=== PATIENT | female | born 1945 | race Two or more races ===

== ENCOUNTER 2017-06-19 14:05 | Emergency (ER) | payer MEDICARE ==
[~2017-06-19] VITALS: Ht 162.6 cm; Wt 81.2 kg
[2017-06-19] MEDS ORDERED: DULO60CA45 PO (14:40)
[2017-06-19] MEDS ORDERED: CARB-92 PO (14:40)
[2017-06-19] MEDS ORDERED: METO100T7 PO (14:40)
[2017-06-19] MEDS ORDERED: LACT1TAB12 PO (14:40)
[2017-06-19] MEDS ORDERED: LEVE500T9 PO (14:40)
[2017-06-19] MEDS ORDERED: ATOR10TA PO (14:40)
[2017-06-19] MEDS ORDERED: TRAZ-144 PO (14:40)
[2017-06-19] MEDS ORDERED: LISI10TA5 PO (14:40)
[2017-06-19] MEDS ORDERED: PRAM0.122 PO (14:40)
[2017-06-19 14:59] LABS: BASOPHILS # (AUTO) 0.1 K/uL (0.0-8.0); BASOPHILS % (AUTO) 0.8 % (0.0-2.0); EOSINOPHILS # (AUTO) 0.2 K/uL (0.0-0.7); EOSINOPHILS % (AUTO) 2.2 % (0.0-7.0); HEMATOCRIT 40.6 % (31.2-41.9); HEMOGLOBIN 13.7 g/dL (10.9-14.3); LYMPHOCYTES # (AUTO) 1.6 K/uL (20.0-40.0); LYMPHOCYTES % (AUTO) 16.9 % (20.5-51.5); MEAN CORPUSCULAR HGB CONC 34 g/dL (32.3-35.6); MEAN CORPUSCULAR VOLUME 88.7 fL (75.5-95.3); MONOCYTES # (AUTO) 0.7 K/uL (2.0-10.0); MONOCYTES % (AUTO) 7.2 % (0.0-11.0); NEUTROPHILS # (AUTO) 7.1 K/uL (1.8-8.9); NEUTROPHILS % (AUTO) 72.9 % (38.5-71.5); PLATELET COUNT (AUTO) 282 K/uL (179-408); RED BLOOD CELL COUNT(AUTO) 4.58 MIL/uL (3.63-4.92); WHITE BLOOD COUNT (AUTO) 9.8 K/uL (3.8-11.8)
--- NOTE | 2017-06-19 15:00 | NUR ---
PATIENT WAS SEEN BY MD FOR MULTIPLE COMPLAINTS. LABS DRAWN, URINE SENT TO LAB.
[2017-06-19 15:06] LABS: CARBON DIOXIDE 29 mmol/L (21-32); CHLORIDE 104 mmol/L (98-107); CREATININE 0.7 mg/dL (0.6-1.3); GLUCOSE 126 mg/dL (74-106); POTASSIUM 3.2 mmol/L (3.5-5.1); UREA NITROGEN, BLOOD 11 mg/dL (7-18)
[2017-06-19 15:08] LABS: *BILIRUBIN,URIN NEGATIVE (NEGATIVE); *BLOOD, URINE NEGATIVE (NEGATIVE); *COLOR,URINE YELLOW (YELLOW); *KETONES,URINE 1+ (NEGATIVE); *PROTEIN,URINE 1+ (NEGATIVE); *UROBILINOGEN,URINE 0.2 E.U./dl (NORMAL); LEUKOCYTE ESTERASE ,URINE TRACE (NEGATIVE); NITRITE, URINE NEGATIVE (NEGATIVE); UGLUCOSE NEGATIVE (NEGATIVE)
[2017-06-19 15:12] LABS: ALANINE AMINOTRANSFERASE 8 U/L (14-59); ALKALINE PHOSPHATASE 66 U/L (50-136); ASPARTATE AMINOTRANSFERASE 7 U/L (15-37); BILIRUBIN,DIRECT 0.1 mg/dL (0.0-0.2); BILIRUBIN,TOTAL 0.6 mg/dL (0.2-1.0); LIPASE 121 U/L (73-393); TOTAL PROTEIN, SERUM 7.1 g/dL (6.4-8.2)
[2017-06-19 15:20] LABS: *CLARITY,URINE HAZY (CLEAR)
[2017-06-19 15:21] LABS: BACTERIA,URINE FEW /HPF (NONE SEEN); MUCUS,URINE MODERATE /LPF (0-FEW); SQUAMOUS EPITHELIAL CELL,UR MANY /HPF (NONE SEEN)
--- NOTE | 2017-06-19 17:01 | NUR ---
AWAITING FOR CT RESULTS. PT IS AWAKE AND ALERT WITH NO NEW COMPLAINTS. FAMILY AT BEDSIDE.
[2017-06-19] MEDS ORDERED: MAGNESIUM CITRATE 296 ML BOTTLE ONE (17:14)
[2017-06-19] MEDS ORDERED: MAGNESIUM HYDROXIDE 30 ML LIQUID UDC ONE ×2 (17:14→17:15)
[2017-06-19] MEDS ORDERED: MAGNESIUM CITRATE 296 ML BOTTLE PO ONE (17:15)
[2017-06-19] MEDS ORDERED: MAGNESIUM HYDROXIDE 30 ML LIQUID UDC PO ONE (17:15)
--- NOTE | 2017-06-19 17:25 | NUR ---
ALL TEST RESULTS PRINTED AND GIVEN TO PATIENT. DC AND FOLLOW UP INSTRUCTIONS GIVEN AND EXPLAINED TO PATIENT WHO STATES SHE UNDERSTANDS ALL INSTRUCTIONS.
[2017-06-19 17:27] VITALS: BP 133/86
== END 2017-06-19 17:27 | disposition home or self-care (01) ==
LOC: ER 14:06
DX: K57.90 Diverticulosis of intestine, part unspecified, without perforation or abscess without bleeding (principal); I10 Essential (primary) hypertension; Z88.0 Allergy status to penicillin; Z79.891 Long term (current) use of opiate analgesic; Z79.899 Other long term (current) drug therapy; Z88.5 Allergy status to narcotic agent
CPT/HCPCS: 36415; 83690; 85025; 87086; A4663

== ENCOUNTER 2017-06-24 03:33 | Emergency (ER) | payer MEDICARE ==
[~2017-06-24] VITALS: Ht 162.6 cm; Wt 81.6 kg
[~2017-06-24 03:33] MED LIST: ATOR10TA PO; CARB-92 PO; DULO60CA45 PO; LACT1TAB12 PO; LEVE500T9 PO; LISI10TA5 PO; METO100T7 PO; PRAM0.122 PO; TRAZ-144 PO
[2017-06-24] MEDS ORDERED: LORAZEPAM 0.5 MG TABLET PO ONE (04:08)
[2017-06-24] MEDS ORDERED: LORAZEPAM 1 MG TABLET ONE (04:31)
[2017-06-24 04:36] LABS: BASOPHILS # (AUTO) 0.1 K/uL (0.0-8.0); BASOPHILS % (AUTO) 0.5 % (0.0-2.0); EOSINOPHILS # (AUTO) 0.4 K/uL (0.0-0.7); EOSINOPHILS % (AUTO) 3.1 % (0.0-7.0); HEMATOCRIT 38.7 % (31.2-41.9); HEMOGLOBIN 13.4 g/dL (10.9-14.3); LYMPHOCYTES # (AUTO) 2.2 K/uL (20.0-40.0); LYMPHOCYTES % (AUTO) 19.2 % (20.5-51.5); MEAN CORPUSCULAR HEMOGLOBIN 30.1 uug (24.7-32.8); MEAN CORPUSCULAR HGB CONC 35 g/dL (32.3-35.6); MEAN CORPUSCULAR VOLUME 86.7 fL (75.5-95.3); MONOCYTES # (AUTO) 0.7 K/uL (2.0-10.0); MONOCYTES % (AUTO) 6.3 % (0.0-11.0); NEUTROPHILS % (AUTO) 70.9 % (38.5-71.5); PLATELET COUNT (AUTO) 273 K/uL (179-408); RED BLOOD CELL COUNT(AUTO) 4.46 MIL/uL (3.63-4.92); WHITE BLOOD COUNT (AUTO) 11.3 K/uL (3.8-11.8)
[2017-06-24 04:50] LABS: CARBON DIOXIDE 25 mmol/L (21-32); CHLORIDE 102 mmol/L (98-107); CREATININE 0.8 mg/dL (0.6-1.3); GLUCOSE 115 mg/dL (74-106); POTASSIUM 3.5 mmol/L (3.5-5.1); UREA NITROGEN, BLOOD 16 mg/dL (7-18)
[2017-06-24 05:01] LABS: ALANINE AMINOTRANSFERASE 9 U/L (14-59); ALKALINE PHOSPHATASE 65 U/L (50-136); ASPARTATE AMINOTRANSFERASE 10 U/L (15-37); BILIRUBIN,TOTAL 0.7 mg/dL (0.2-1.0); CREATINE KINASE, TOTAL 62 U/L (26-192); TOTAL PROTEIN, SERUM 6.9 g/dL (6.4-8.2)
[2017-06-24 05:25] LABS: *BILIRUBIN,URIN NEGATIVE (NEGATIVE); *BLOOD, URINE NEGATIVE (NEGATIVE); *CLARITY,URINE CLEAR (CLEAR); *COLOR,URINE YELLOW (YELLOW); *KETONES,URINE 1+ (NEGATIVE); *PROTEIN,URINE 1+ (NEGATIVE); *UROBILINOGEN,URINE 0.2 E.U./dl (NORMAL); LEUKOCYTE ESTERASE ,URINE NEGATIVE (NEGATIVE); NITRITE, URINE NEGATIVE (NEGATIVE); PH,URINE 7.5 (5.0-8.0); UGLUCOSE NEGATIVE (NEGATIVE)
[2017-06-24 05:31] LABS: BACTERIA,URINE NONE SEEN /HPF (NONE SEEN); RBC,URINE 0-3 /HPF (0-3); WBC,URINE 0-3 /HPF (0-3)
[2017-06-24 05:32] LABS: SQUAMOUS EPITHELIAL CELL,UR FEW /HPF (NONE SEEN)
--- NOTE | 2017-06-24 06:07 | NUR ---
Patient discharged to home in stable conditon. Written and verbal after care instructions given. Patient verbalizes understanding of instructions.
== END 2017-06-24 06:15 | disposition home or self-care (01) ==
LOC: ER 03:38
DX: R53.83 Other fatigue (principal); I10 Essential (primary) hypertension; Z88.0 Allergy status to penicillin; Z88.5 Allergy status to narcotic agent; Z79.899 Other long term (current) drug therapy
CPT/HCPCS: 36415; 71045; 80053; 81001; 82550; 84484; 85025; 85610; 93005; 99285; A4663; 70030-TC

== ENCOUNTER 2017-07-13 19:16 | Inpatient (IN) | payer MEDICARE ==
[~2017-07-13] VITALS: Ht 172.7 cm; Wt 74.8 kg
--- NOTE | 2017-07-13 19:16 | NUR ---
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 PT AAOX3. PT STATES SHE HAD A SEIZURE WHILE TRYING TO GET INSIDE HER DAUGHTER'S CAR. PER PT, SHE FELL AND HIT HER HEAD. BRUISE TOWARDS RIGHT EYE/NOSE BRIDGE NOTED. BRUISE ON LEFT FOOT NOTED. PT BECAME INCONTINENT OF STOOL AND URINE. RESPIRATIONS EVEN + UNLABORED. SAO2 97% ON 2L O2 VIA NC. PT ON MONITOR. NSR. SEIZURE PRECAUTIONS IMPLEMENTED. VSS.
--- NOTE | 2017-07-13 19:30 | NUR ---
AAOX3. PT ABLE TO SPEAK IN COMPLETE SENTENCES. RESPONSIVE TO VERBAL + TACTILE STIMULI. PT ABLE TO MAKE NEEDS KNOWN. PERSONAL HYGIENE PROVIDED. SEIZURE PRECAUTIONS IMPLEMENTED.
[2017-07-13 19:43] LABS: BASOPHILS # (AUTO) 0.1 K/uL (0.0-8.0); BASOPHILS % (AUTO) 0.6 % (0.0-2.0); EOSINOPHILS # (AUTO) 0.3 K/uL (0.0-0.7); EOSINOPHILS % (AUTO) 2.3 % (0.0-7.0); HEMATOCRIT 37.5 % (31.2-41.9); HEMOGLOBIN 12.9 g/dL (10.9-14.3); LYMPHOCYTES % (AUTO) 16.1 % (20.5-51.5); MEAN CORPUSCULAR HEMOGLOBIN 30.3 uug (24.7-32.8); MEAN CORPUSCULAR HGB CONC 34 g/dL (32.3-35.6); MEAN CORPUSCULAR VOLUME 88.5 fL (75.5-95.3); MONOCYTES # (AUTO) 0.7 K/uL (2.0-10.0); MONOCYTES % (AUTO) 5.5 % (0.0-11.0); NEUTROPHILS # (AUTO) 9.6 K/uL (1.8-8.9); NEUTROPHILS % (AUTO) 75.5 % (38.5-71.5); PLATELET COUNT (AUTO) 362 K/uL (179-408); RED BLOOD CELL COUNT(AUTO) 4.24 MIL/uL (3.63-4.92); WHITE BLOOD COUNT (AUTO) 12.7 K/uL (3.8-11.8)
--- NOTE | 2017-07-13 19:55 | NUR ---
PT EN ROUTE TO CT SCAN ACCOMPANIED BY TRANSPORTER. NO DISTRESS NOTED. VSS.
[2017-07-13 19:58] LABS: CARBON DIOXIDE 24 mmol/L (21-32); CHLORIDE 98 mmol/L (98-107); CREATININE 0.8 mg/dL (0.6-1.3); GLUCOSE 145 mg/dL (74-106); POTASSIUM 2.9 mmol/L (3.5-5.1); UREA NITROGEN, BLOOD 11 mg/dL (7-18)
[2017-07-13 20:12] LABS: ALANINE AMINOTRANSFERASE 6 U/L (14-59); ALKALINE PHOSPHATASE 89 U/L (50-136); ASPARTATE AMINOTRANSFERASE 9 U/L (15-37); BILIRUBIN,DIRECT 0.1 mg/dL (0.0-0.2); BILIRUBIN,TOTAL 0.6 mg/dL (0.2-1.0); TOTAL PROTEIN, SERUM 6.9 g/dL (6.4-8.2)
--- NOTE | 2017-07-13 20:15 | NUR ---
PT BACK FROM CT SCAN. NO DISTRESS NOTED.
[2017-07-13] MEDS ORDERED: LORAZEPAM 2 MG/1 ML VIAL IV ONE ×2 (20:45→21:30)
[2017-07-13] MEDS ORDERED: POTASSIUM CHLORIDE 50 ML ONE (20:55)
[2017-07-13] MEDS ORDERED: CARB-93 PO ×2 (20:56)
[2017-07-13] MEDS ORDERED: LORAZEPAM 2 MG/1 ML VIAL ONE ×2 (20:57→21:40)
[2017-07-13] MEDS ORDERED: POTASSIUM CHLORIDE 50 ML IV SCH (21:00)
[2017-07-13] MEDS ORDERED: LABETALOL HCL 100 MG/20 ML VIAL ONE (21:10)
[2017-07-13] MEDS ORDERED: LABETALOL HCL 100 MG/20 ML VIAL IV ONE (21:15)
--- NOTE | 2017-07-13 21:30 | NUR ---
PT SHOWS SINUS TACHY ON MONITOR. HR 120. PT AAOX3. RESPIRATIONS EVEN + UNLABORED. SAO2 96% ON 2L O2 VIA NC. ATIVAN GIVEN.
--- NOTE | 2017-07-13 21:43 | NUR ---
DR ROSA SPOKE WITH DR KIKA MAX WHO IS ACCEPTING MD AT [facility]. CALLED [facility] AND SPOKE WITH JADE. SHE WILL CALL BACK WITH TRANSFER INFO WHEN INFO IS AVAILABLE
--- NOTE | 2017-07-13 22:08 | NUR ---
RECEIVED CALL FROM [facility] INFORMING US THERE ARE NO BEDS AVAILABLE.
--- NOTE | 2017-07-13 22:30 | NUR ---
Paged [facility] panel as ordered by Dr Cline for admission of patient. Waiting for Dr Schmitt to call back
--- NOTE | 2017-07-13 23:00 | NUR ---
Dr York has not return call. Repaged Dr Schmitt
--- NOTE | 2017-07-13 23:24 | NUR ---
WHITNEY (PT'S DAUGHTER) PHONE# [phone]
--- NOTE | 2017-07-13 23:30 | NUR ---
Dr Schmitt has nt return phone call. Repaged Dr Schmitt
--- NOTE | 2017-07-13 23:50 | NUR ---
PT RESTING IN BED COMFORTABLY WITH EYES CLOSED. VSS. NO DISTRESS NOTED.
--- NOTE | 2017-07-13 23:55 | NUR ---
PAGED [facility] FOR PANEL CALL. WAITING FOR CALL BACK.
[2017-07-14] VITALS (8 sets, daily range): BP systolic 128–184; BP diastolic 56–108
--- NOTE | 2017-07-14 00:09 | NUR ---
DR. ROSA TALKING TO VIKI LLANES NP.
--- NOTE | 2017-07-14 00:45 | NUR ---
NEW ADMIT FROM ER ADMITTED FOR SEIZURE OBSERVATION. PATIENT IS AAXO3 DENIES PAIN OR ANY DISTRESS ON ASSESSMENT. BP ELEVATED, AWAITING FOR ADMIT ORDERS. WILL CONTINUE TO MONITOR PATIENT
--- NOTE | 2017-07-14 00:56 | NUR ---
Pt. admitted to Tele , under care of Jodie Cedillo NP. Belongs List completed. VSS.
[2017-07-14] MEDS ORDERED: ACETAMINOPHEN 325 MG TABLET PO PRN (02:00)
[2017-07-14] MEDS ORDERED: ZOLPIDEM 5 MG TABLET PO PRN (02:00)
[2017-07-14] MEDS ORDERED: HYDROCODONE/APAP 5-325MG TABLET PO PRN (02:00)
[2017-07-14] MEDS ORDERED: MAGNESIUM HYDROXIDE 30 ML LIQUID UDC PO PRN (02:00)
[2017-07-14] MEDS ORDERED: LORAZEPAM 2 MG/1 ML VIAL IV PRN (02:00)
[2017-07-14] MEDS ORDERED: ONDANSETRON 4 MG/2 ML VIAL IV PRN (02:00)
[2017-07-14] MEDS ORDERED: hydrALAZINE HCL 20 MG/1 ML VIAL IV PRN (03:00)
--- NOTE | 2017-07-14 06:51 | NUR ---
PATIENT IS ASLEEP, NO SZ ACTIVITY ON THIS SHIFT. NO C/O PAIN OR ACUTE DISTRESS REPORTED ON THIS SHIFT. SZ AND SAFETY PRECAUTION MAINTAINED AT ALL TIMES
[2017-07-14 07:00] LABS: CARBON DIOXIDE 29 mmol/L (21-32); CHLORIDE 101 mmol/L (98-107); CREATININE 0.6 mg/dL (0.6-1.3); GLUCOSE 101 mg/dL (74-106); UREA NITROGEN, BLOOD 8 mg/dL (7-18)
[2017-07-14 07:19] LABS: BASOPHILS # (AUTO) 0.1 K/uL (0.0-8.0); BASOPHILS % (AUTO) 0.5 % (0.0-2.0); EOSINOPHILS # (AUTO) 0.2 K/uL (0.0-0.7); EOSINOPHILS % (AUTO) 1.5 % (0.0-7.0); HEMOGLOBIN 12.5 g/dL (10.9-14.3); LYMPHOCYTES # (AUTO) 1.7 K/uL (20.0-40.0); LYMPHOCYTES % (AUTO) 14.4 % (20.5-51.5); MEAN CORPUSCULAR HEMOGLOBIN 30.4 uug (24.7-32.8); MEAN CORPUSCULAR HGB CONC 35 g/dL (32.3-35.6); MEAN CORPUSCULAR VOLUME 87.5 fL (75.5-95.3); MONOCYTES # (AUTO) 0.8 K/uL (2.0-10.0); MONOCYTES % (AUTO) 6.6 % (0.0-11.0); NEUTROPHILS # (AUTO) 9.2 K/uL (1.8-8.9); PLATELET COUNT (AUTO) 339 K/uL (179-408); RED BLOOD CELL COUNT(AUTO) 4.12 MIL/uL (3.63-4.92)
--- NOTE | 2017-07-14 08:00 | NUR ---
VERY CONFUSED AND AGITATED, GOES ROOM BY ROOM. BP 220/120, HR 170 ON MONITOR. ATIVAN IV GIVEN AND CLOSLY MONITORED
[2017-07-14] MEDS: CARBIDOPA/LEVODOPA 25-100MG TABLET PO SCH ×3 (08:44→16:17)
[2017-07-14] MEDS: PRAMIPEXOLE 0.25 MG TABLET PO SCH ×3 (08:44→16:18)
[2017-07-14] MEDS: POTASSIUM CHLORIDE 50 ML IV SCH ×4 (08:45→13:32)
[2017-07-14] MEDS ORDERED: DULOXETINE 60 MG CAPSULE.DR PO SCH (09:00)
[2017-07-14] MEDS ORDERED: LISINOPRIL 10 MG TABLET PO SCH (09:00)
[2017-07-14] MEDS ORDERED: LEVETIRACETAM 500 MG TABLET PO SCH ×2 (09:00→21:00)
[2017-07-14] MEDS ORDERED: ENOXAPARIN SODIUM 40 MG/0.4 ML DISP.SYRIN SQ SCH (09:00)
[2017-07-14] MEDS ORDERED: METOPROLOL SUCCINATE XL 100 MG TAB.SR.24H PO SCH (09:00)
--- NOTE | 2017-07-14 10:00 | NUR ---
PATIENT REFUSED SECOND DOSE OF IV ATIVAN AFTER BEING WASTED
--- NOTE | 2017-07-14 10:55 | NUR ---
PATIENT STILL SHAKING AND YELLING CONSTANTLY FOR HELP CONFUSED AND DISORIENTED, SEEN BY DR DOWNEY SEE NOTES
--- NOTE | 2017-07-14 14:54 | NUR ---
RESTING COMFORTABLY NO SS OF PAIN OR DISTRESS. BLOOD PRESSURE UNDER CONTROL. SEE INTERVENTION RECORDS
--- NOTE | 2017-07-14 17:33 | NUR ---
NO ACTIVE SEIZURE OBSERVE, CLOSELY MONITORED. FOR TRANSFER TO [facility] WHEN BED IS AVAILABLE
[2017-07-14 17:46] LABS: *BILIRUBIN,URIN NEGATIVE (NEGATIVE); *BLOOD, URINE 1+ (NEGATIVE); *CLARITY,URINE CLOUDY (CLEAR); *KETONES,URINE 2+ (NEGATIVE); *PROTEIN,URINE 2+ (NEGATIVE); *UROBILINOGEN,URINE 0.2 E.U./dl (NORMAL); LEUKOCYTE ESTERASE ,URINE 3+ (NEGATIVE); NITRITE, URINE NEGATIVE (NEGATIVE); UGLUCOSE NEGATIVE (NEGATIVE)
[2017-07-14 18:06] LABS: *COLOR,URINE YELLOW (YELLOW)
[2017-07-14 18:08] LABS: BACTERIA,URINE MANY /HPF (NONE SEEN); MUCUS,URINE MODERATE /LPF (0-FEW); SQUAMOUS EPITHELIAL CELL,UR FEW /HPF (NONE SEEN); WBC,URINE TNTC /HPF (0-3)
--- NOTE | 2017-07-14 19:10 | NUR ---
Received patient sleeping during initial rounds. Right side of nose bridge with visible bruise due to fall. Seizure precaution maintained.
[2017-07-14] MEDS ORDERED: LEVOFLOXACIN 500 MG/D5W 500 MG in PREMIXED 1 EACH IV SCH (20:00)
--- NOTE | 2017-07-14 20:05 | NUR ---
Informed daughter Delilah that [facility] called for available bed, that we are transferring her mom within 30 - 1 hour after all the necessary paper works done via Ambulance.
[2017-07-14] MEDS ORDERED: ATORVASTATIN 10 MG TABLET PO SCH (21:00)
--- NOTE | 2017-07-14 22:16 | NUR ---
Ambulance here to moss picker patient to [facility]. Report given to
== END 2017-07-14 22:29 | disposition short-term general hospital (02) | DRG 100 ==
LOC: ER 19:18 → TELE 07-14 00:19
PROVIDERS: ADMIT Internal Medicine; ATTEND Internal Medicine
DX: G40.909 Epilepsy, unspecified, not intractable, without status epilepticus (principal); G92 Toxic encephalopathy; G20 Parkinson's disease; N39.0 Urinary tract infection, site not specified; E87.6 Hypokalemia; E78.5 Hyperlipidemia, unspecified; F32.9 Major depressive disorder, single episode, unspecified; F41.9 Anxiety disorder, unspecified; I10 Essential (primary) hypertension; S00.83XA Contusion of other part of head, initial encounter; X58.XXXA Exposure to other specified factors, initial encounter; Y93.9 Activity, unspecified; Y92.009 Unspecified place in unspecified non-institutional (private) residence as the place of occurrence of the external cause; R32 Unspecified urinary incontinence
CPT/HCPCS: 36415; 70450; 71045; 72125; 85025; 87077; 87086; 93005; A4663; C1758; J0360; J1650; J1956; J2060; J3480; J3490; J7050

== ENCOUNTER 2020-12-07 20:25 | Inpatient (IN) | payer MEDICARE, OTHER ==
[~2020-12-07] VITALS: Ht 165.1 cm; Wt 60.8 kg
[~2020-12-07 20:25] MED LIST changes: -CARB-92 PO; +CARB-93 PO; +LEVE500T9 GT; -LEVE500T9 PO; +LISI10TA29 PO; -LISI10TA5 PO; -TRAZ-144 PO
--- NOTE | 2020-12-07 20:30 | NUR ---
PATIENT BIB PRIVATE AMBULANCE FROM [facility] FOR EVAL FOR FEVER EARLIER TODAY. PATIENT UPON ARRIVAL A/OX2, O2 SAT AT 97% ON 2LITERS OF N/C. INDWELLING HERNANDEZ CATHETER DRAINING CLEAR YELLOW URINE. G TUBE INTACT WITH DRESSING CLEAN AND DRY. PATIENT DENIES ANY DISTRESS AT THIS TIME.
[2020-12-07] MEDS ORDERED: IV NORMAL SALINE 1000 ML BAG IV ONE (21:00)
[2020-12-07] MEDS ORDERED: BISA10SU11 RC (21:10)
[2020-12-07] MEDS ORDERED: MEMA10TA GT (21:10)
[2020-12-07] MEDS ORDERED: ACET-2154 GT (21:10)
[2020-12-07] MEDS ORDERED: CLON0.1T GT (21:10)
[2020-12-07] MEDS ORDERED: acetylcysteine INH (21:10)
[2020-12-07] MEDS ORDERED: BIMA2.5D5 EACHEYE (21:10)
[2020-12-07] MEDS ORDERED: PANT40TA2 GT (21:10)
[2020-12-07] MEDS ORDERED: APIX5TAB GT (21:10)
[2020-12-07] MEDS ORDERED: ASCO500T10 GT (21:10)
[2020-12-07] MEDS ORDERED: PRAV20TA4 GT (21:10)
[2020-12-07] MEDS ORDERED: ESCI-9 GT ×2 (21:10)
[2020-12-07] MEDS ORDERED: METO100T14 GT (21:10)
[2020-12-07] MEDS ORDERED: DORZ10DR11 EACHEYE (21:10)
[2020-12-07] MEDS ORDERED: ONDA-104 GT (21:10)
[2020-12-07] MEDS ORDERED: BRIM5DRO EACHEYE (21:10)
[2020-12-07] MEDS ORDERED: AMLO-212 GT (21:10)
[2020-12-07 21:11] LABS: *BILIRUBIN,URIN NEGATIVE (NEGATIVE); *BLOOD, URINE 1+ (NEGATIVE); *CLARITY,URINE CLEAR (CLEAR); *COLOR,URINE YELLOW (YELLOW); *KETONES,URINE NEGATIVE (NEGATIVE); LEUKOCYTE ESTERASE ,URINE 1+ (NEGATIVE); NITRITE, URINE NEGATIVE (NEGATIVE); UGLUCOSE NEGATIVE (NEGATIVE)
[2020-12-07 21:12] LABS: CARBON DIOXIDE 27 mmol/L (21-32); CHLORIDE 100 mmol/L (98-107); CREATININE 0.5 mg/dL (0.6-1.3); GLUCOSE 99 mg/dL (74-106); POTASSIUM 4.6 mmol/L (3.5-5.1); UREA NITROGEN, BLOOD 20 mg/dL (7-18)
[2020-12-07 21:17] LABS: ALANINE AMINOTRANSFERASE 8 U/L (14-59); ALKALINE PHOSPHATASE 57 U/L (50-136); ASPARTATE AMINOTRANSFERASE 17 U/L (15-37); BILIRUBIN,DIRECT < 0.1 mg/dL (0.0-0.2); BILIRUBIN,TOTAL 0.4 mg/dL (0.2-1.0); TOTAL PROTEIN, SERUM 7.5 g/dL (6.4-8.2)
[2020-12-07 21:19] LABS: HEMATOCRIT 33.5 % (31.2-41.9); MEAN CORPUSCULAR HEMOGLOBIN 31.5 uug (24.7-32.8); MEAN CORPUSCULAR VOLUME 93.1 fL (75.5-95.3)
[2020-12-07 21:22] LABS: PLATELET COUNT (AUTO) 1034 K/uL (179-408)
[2020-12-07] MEDS ORDERED: ONDANSETRON 4 MG/2 ML VIAL IV PRN (22:15)
[2020-12-07] MEDS ORDERED: CEFTRIAXONE 1 G in IV DEXTROSE 5% 50 ML IV ONE (22:15)
[2020-12-07] MEDS ORDERED: IV D5/ 0.9% NACL 1,000 ML IV PRN (22:15)
[2020-12-07] MEDS ORDERED: VANCOMYCIN IV 1,000 MG in IV DEXTROSE 5% 250 ML IV ONE (22:15)
--- NOTE | 2020-12-07 22:15 | NUR ---
HOSPITAL'S CT SCAN DOWN. WILL SEND PATIENT TO [facility]. ETA OF PLATE GRAINER IS 45MINS.
[2020-12-07] MEDS ORDERED: CEFTRIAXONE /D5W 50ML IVPB **ER PYXIS IV ONE (22:25)
[2020-12-07] MEDS ORDERED: VANCOMYCIN IV 200 ML ONE (22:53)
--- NOTE | 2020-12-07 23:50 | NUR ---
CT scan up and functioning. Patient sent down for ct scan via gurny.
--- NOTE | 2020-12-08 00:01 | NUR ---
Patient back from ct scan with no distress noted.
[2020-12-08] MEDS ORDERED: MEROPENEM 0.5 G in IV NORMAL SALINE 50 ML IV ONE (02:45)
--- NOTE | 2020-12-08 02:45 | NUR ---
Drained 900ml of clear yellow urine from longo catheter.
--- NOTE | 2020-12-08 02:48 | NUR ---
Tarnsfered patient to 3rd floor Tele room 325.
--- NOTE | 2020-12-08 03:00 | NUR ---
RECEIVED PATIENT VIA GURNEY FROM ER. A/O X 2-3. VERBALIZES UNDERSTANDING. DENIES PAIN. NO FACIAL GRIMACE NOTED. AFEBRILE. VS WNL. ON 02 2L NC. F/C INTACT, DRAINING WELL TO GRAVITY. ON TELE SR. CALL LIGHT IN REACH. ALL NEEDS ATTENDED. WILL CONTINUE TO MONITOR AND ASSESS.
[2020-12-08 03:37] VITALS: BP 122/42
--- NOTE | 2020-12-08 04:42 | NUR ---
CASING CREW REPORTED THAT PATIENT HAD A RUN OF 7 BEATS V-TACH AND THEN BACK TO SR. WILL CONTINUE TO MONITOR AND ASSESS.
[2020-12-08] MEDS ORDERED: MEROPENEM 500MG/NS 50ML PB ***ER PYXIS ONLY IV ONE (04:56)
[2020-12-08] MEDS ORDERED: Z GUARD REMEDY PASTE 57 GM TUBE TOP PRN (05:30)
[2020-12-08 06:53] LABS: BAND % (MANUAL) 1 % (0-10); EOSINOPHILS % (MANUAL) 7 % (0-8); LYMPHOCYTES % (MANUAL) 27 % (20-40); MONOCYTES % (MANUAL) 3 % (2-10); NEUTROPHILS % (MANUAL) 62 % (42-75)
[2020-12-08 07:54] LABS: HEMATOCRIT 28.1 % (31.2-41.9); MEAN CORPUSCULAR HEMOGLOBIN 32.5 uug (24.7-32.8); PLATELET COUNT (AUTO) 840 K/uL (179-408)
[2020-12-08 07:55] LABS: IRON, SERUM 15 ug/dL (50-175)
--- NOTE | 2020-12-08 08:00 | NUR ---
RECEIVED REPORT FROM TRIAGE NURSE. PATIENT RESTING IN BED. PENDING WOUND AND DEICER KIT ASSEMBLER CONSULT. IS NPO NOW. ON D5 NS AT 70CC/ HR TO RIGHT AC PERIPHERAL IV. DX. UTI, ON ABX IV.ON 2L/MIN 02 VIA NC. AWAKE, ALERT TO PERSON, ANSWERS QUESTIONS APPROPRIATELY.
[2020-12-08 08:01] LABS: ALANINE AMINOTRANSFERASE 8 U/L (14-59); ALKALINE PHOSPHATASE 50 U/L (50-136); ASPARTATE AMINOTRANSFERASE 16 U/L (15-37); BILIRUBIN,TOTAL 0.3 mg/dL (0.2-1.0); CARBON DIOXIDE 26 mmol/L (21-32); CHLORIDE 104 mmol/L (98-107); CHOLESTEROL 125 mg/dL (<200); CREATININE 0.5 mg/dL (0.6-1.3); GLUCOSE 115 mg/dL (74-106); HDL CHOLESTEROL 41 mg/dL (40-60); MAGNESIUM 1.9 mg/dL (1.8-2.4); PHOSPHOROUS 4.1 mg/dL (2.5-4.9); POTASSIUM 3.8 mmol/L (3.5-5.1); TOTAL PROTEIN, SERUM 6.4 g/dL (6.4-8.2); TRIGLYCERIDES 75 MG/DL (30-150); UREA NITROGEN, BLOOD 15 mg/dL (7-18)
[2020-12-08 08:22] LABS: THYROID STIMULATING HORMONE 2.342 mIU/mL (0.358-3.740)
[2020-12-08] MEDS: levETIRAcetam IV 500 MG in IV DEXTROSE 5% 100 ML IV SCH ×2 (09:28→20:12)
[2020-12-08] MEDS: PANTOPRAZOLE SODIUM 40 MG VIAL IV SCH (09:29)
--- NOTE | 2020-12-08 11:26 | NUR ---
SPOKE TO COWLMAN WITH RECOMMENDATION FOR gt FEEDING. START JEVITY 1.2 AT 40ML/HR VIA GT. INCREASE BY 20ML PER 6 HOURS FOR GOAL RATE AT 65ML/HR FOR 22 HOURS. OFF AT 6AM ON AT 8AM. SPOKE TO DR. TUCKER, AGREED WITH ORDERS AND ORDERED TO DC IV FLUIDS AFTER 1 HOUR OF START OF GT FEEDING.
[2020-12-08 11:45] VITALS: BP 96/40
[2020-12-08] MEDS ORDERED: LEVE500S9 GT (12:38)
[2020-12-08] MEDS ORDERED: MEMA5TAB GT (12:40)
[2020-12-08] MEDS: MEROPENEM 1 G in IV NORMAL SALINE 100 ML IV SCH ×2 (13:16→21:36)
[2020-12-08] MEDS ORDERED: IPRA12.9 IH (13:57)
[2020-12-08] MEDS ORDERED: IPRA3AMP23 IH (13:58)
[2020-12-08] MEDS ORDERED: ACET100V5 IH (13:59)
[2020-12-08] MEDS ORDERED: MEROPENEM 0.5 G in IV NORMAL SALINE 50 ML IV SCH (14:00)
[2020-12-08] MEDS: JEVITY 1.2 1000 ML LIQUID GT PRN (14:44)
[2020-12-08 16:31] VITALS: BP 104/61
--- NOTE | 2020-12-08 18:12 | NUR ---
NO CHANGE NOTED FROM MORNING ASSESSMENT/ BASELINE. CONTINUE POC.
[2020-12-08 20:21] VITALS: BP 127/64
[2020-12-09 00:12] VITALS: BP 114/55
[2020-12-09] MEDS: MORPHINE SULFATE 2 MG/1 ML DISP.SYRIN IV PRN ×2 (01:02→22:29)
--- NOTE | 2020-12-09 01:06 | NUR ---
Facial grimacing noted. Pt looks uncomfortable. Moaning and groaning. Morphine given for pain.
--- NOTE | 2020-12-09 03:00 | NUR ---
Notified Dr Aguilar diversional therapist for [place] pt has temp of 101 tylenol given and cooling measures done will monitor patient. No new order received.
[2020-12-09] MEDS: ACETAMINOPHEN 650 MG SUPP.RECT RC PRN ×2 (03:17→13:26)
[2020-12-09 04:18] VITALS: BP 133/45
--- NOTE | 2020-12-09 04:34 | NUR ---
Notified Dr Aguilar of pt having 6 beats of v tach Back to SNR @110 Temp rechecked 98.8. b/p 132/54 o2 sat of 95%on 2 lit. Pt asymptomatic. Pt is in no acute distress. No new order received. Notified no statistician theoretical notes.
[2020-12-09] MEDS: MEROPENEM 1 G in IV NORMAL SALINE 100 ML IV SCH ×3 (06:05→21:35)
[2020-12-09 06:15] LABS: HEMATOCRIT 30.7 % (31.2-41.9); MEAN CORPUSCULAR HEMOGLOBIN 31.8 uug (24.7-32.8); MEAN CORPUSCULAR VOLUME 95.4 fL (75.5-95.3); PLATELET COUNT (AUTO) 985 K/uL (179-408)
[2020-12-09 06:25] LABS: CREATININE 0.6 mg/dL (0.6-1.3); MAGNESIUM 2.1 mg/dL (1.8-2.4); PHOSPHOROUS 3.6 mg/dL (2.5-4.9); POTASSIUM 4.1 mmol/L (3.5-5.1)
--- NOTE | 2020-12-09 06:40 | NUR ---
Pt had loose bm x 2 at hs shift. PT is in no acute distress.
--- NOTE | 2020-12-09 08:00 | NUR ---
RECEIVED REPORT FROM [facility] RADIOLOGY. PATIENT RESTING IN BED IN SEMI FOWLERS POSITION. PATIENT RESPONSIVE TO NAME, STILL NOTED SLURRED SPEECH. CONTINUES ON OXYGEN AT 2L/MIN VIA NC, NO RESPIRATORY DISTRESS NOTED. GT FEELING OFF SINCE 6AM, WAITING FOR JEVITY 1.2 FROM DIETARY DEPARTMENT. NO FEVER AT THIS TIME. NOTED WITH ONE LOOSE STOOL NOW.
[2020-12-09] MEDS: PANTOPRAZOLE SODIUM 40 MG VIAL IV SCH (08:33)
[2020-12-09] MEDS: levETIRAcetam IV 500 MG in IV DEXTROSE 5% 100 ML IV SCH ×2 (08:33→20:46)
[2020-12-09] MEDS: JEVITY 1.2 1000 ML LIQUID GT PRN (08:54)
[2020-12-09 12:00] VITALS: BP 100/51
--- NOTE | 2020-12-09 12:04 | NUR ---
WOUND CARE CONSULT: PT PRESENTS WITH RASH TO GROIN FOLDS AND PERINEUM WELL INCONTINENCE ASSOCIATED SKIN DAMAGE OVER SACRAL SCAR, PRESENT ON ADMISSION. RECOMMENDATIONS MADE FOR WOUND CARE AND SKIN PROTECTION. DISCUSSED WITH NURSING STAFF. PT IS ON FIRST STEP JORGE MELTON MD IN AGREEMENT WITH PLAN OF CARE. Addendum: 12/09/20 at 1205 by TERESITA SELBY RN Amended: Links added.
--- NOTE | 2020-12-09 13:00 | NUR ---
SPOKE TO LIVING COACH, AWARE OF LOOSE STOOL OVER NIGHT AND THIS AM. AWARE PATIENT IS AT GOAL RATE OF JEVITY 1.2 AT 65ML/HR. TOLERATING WELL. AM RESIDUAL IS 15ML. PATIENT IN SEMI FOWLERS POSITION.
[2020-12-09 15:50] VITALS: BP 103/50
[2020-12-09] MEDS: CLOTRIMAZOLE 1% CREAM 30 GM TUBE TOP SCH (17:01)
--- NOTE | 2020-12-09 17:25 | NUR ---
Dr. Soares made aware of patient tachycardia, 110-130. MD with orders to start Lopressor 50mg via GT now.
[2020-12-09] MEDS: METOPROLOL TARTRATE 50 MG TABLET GT SCH ×2 (17:56→21:00)
--- NOTE | 2020-12-09 18:19 | NUR ---
stool collected fro OB. patient had 2 episodes of loose stool. Patient sleeping most of the day and is now awake. Alert to self and place, answers questions appropriately. no fever
[2020-12-09 18:46] LABS: *OCCULT BLOOD STOOL POSITIVE (NEGATIVE)
[2020-12-09 20:00] VITALS: BP 132/64
[2020-12-10] VITALS: BP 122/72
[2020-12-10] MEDS: LORAZEPAM 2 MG/1 ML VIAL IV PRN (01:50)
[2020-12-10] MEDS: JEVITY 1.2 1000 ML LIQUID GT PRN ×2 (01:53→21:29)
[2020-12-10 04:00] VITALS: BP 111/56
[2020-12-10] MEDS: PANTOPRAZOLE ORAL SUSPENSION 40 MG SUSPDR.PKT GT SCH (05:48)
[2020-12-10] MEDS: MEROPENEM 1 G in IV NORMAL SALINE 100 ML IV SCH ×3 (06:06→21:17)
[2020-12-10] MEDS: METOPROLOL TARTRATE 50 MG TABLET GT SCH ×2 (10:11→21:00)
[2020-12-10] MEDS: CLOTRIMAZOLE 1% CREAM 30 GM TUBE TOP SCH ×2 (10:11→16:33)
[2020-12-10] MEDS: levETIRAcetam IV 500 MG in IV DEXTROSE 5% 100 ML IV SCH (10:13)
[2020-12-10 11:04] VITALS: BP 110/52
[2020-12-10] MEDS ORDERED: IPRATROPIUM BROMIDE 12.9 GM INHALER INH PRN (12:30)
[2020-12-10] MEDS ORDERED: ACETAMINOPHEN 650 MG/20.3 ML LIQUID UDC GT PRN (12:30)
[2020-12-10] MEDS ORDERED: BISACODYL 10 MG SUPP.RECT RC PRN (12:30)
[2020-12-10] MEDS ORDERED: ACETAMINOPHEN 325 MG TABLET-SA PATIENTS-PAIN ONLY GT PRN (12:30)
[2020-12-10] MEDS ORDERED: CLONIDINE HCL 0.1 MG TABLET GT PRN (12:30)
[2020-12-10] MEDS ORDERED: ACETAMINOPHEN 650 MG/20.3 ML LIQUID UDC PO PRN (12:30)
[2020-12-10] MEDS: CARBIDOPA/LEVODOPA 25-100MG TABLET GT SCH ×2 (13:00→16:32)
[2020-12-10] MEDS ORDERED: CARBIDOPA/LEVODOPA 25-100MG TABLET PO SCH (13:00)
[2020-12-10 15:06] VITALS: BP 124/53
[2020-12-10] MEDS: ACETYLCYSTEINE 10% 4ML VIAL NEB SCH ×2 (15:30→22:33)
[2020-12-10] MEDS: MEMANTINE HCL 5 MG TABLET GT SCH (16:32)
[2020-12-10] MEDS: APIXABAN 5 MG TABLET GT SCH (16:38)
[2020-12-10] MEDS: DORZOLAMIDE/TIMOLOL OPHT DROP 10 ML BOTTLE EACHEYE SCH (16:41)
[2020-12-10] MEDS ORDERED: Medication Not On Formulary EA (Levetiracetam 250 MG) GT SCH (17:00)
[2020-12-10] MEDS ORDERED: Medication Not On Formulary EA (Metoprolol Tartrate (Lopressor) 100 MG) GT SCH (17:00)
[2020-12-10] MEDS ORDERED: BIMATOPROST 0.01% OPHT DROP 2.5 ML BOTTLE EACHEYE SCH (21:00)
[2020-12-10] MEDS: ESCITALOPRAM OXALATE 10 MG TABLET GT SCH (21:15)
[2020-12-10] MEDS: levETIRAcetam 500 MG/5 ML LIQUID UDC GT SCH (21:15)
[2020-12-10] MEDS: ATORVASTATIN 10 MG TABLET GT SCH (21:15)
[2020-12-10] MEDS: LATANOPROST OPHT DROP 2.5 ML BOTTLE EACHEYE SCH (21:16)
--- NOTE | 2020-12-10 21:30 | NUR ---
Patient awake verbally responsive , no sob no chest pain, tele monitor sinus rhythm at this time. Patient has no complain of pain at this time, report still has diarrhea, rendered good gabriel care, longo cath patent, no residual from gt, cont to monitor.
[2020-12-10] MEDS: IPRATROPIUM BROMIDE 0.5 MG/2.5 ML NEBU NEB PRN (22:33)
[2020-12-11 01:09] VITALS: BP 94/22
[2020-12-11 04:00] VITALS: BP 126/58
[2020-12-11] MEDS: PANTOPRAZOLE ORAL SUSPENSION 40 MG SUSPDR.PKT GT SCH (05:44)
[2020-12-11] MEDS: MEROPENEM 1 G in IV NORMAL SALINE 100 ML IV SCH ×3 (05:44→21:28)
--- NOTE | 2020-12-11 06:21 | NUR ---
Patient awake but forgetful no sob no chest pain, hob elevated, tolerate feeding, no nausea noted, with soft bm x 2, tele monitor sinus rhythm sinus tachy, denies pain at this time, cont to monitor.
[2020-12-11 06:39] LABS: HEMATOCRIT 29.6 % (31.2-41.9); MEAN CORPUSCULAR HEMOGLOBIN 31.5 uug (24.7-32.8); MEAN CORPUSCULAR VOLUME 94.1 fL (75.5-95.3); PLATELET COUNT (AUTO) 931 K/uL (179-408)
[2020-12-11 07:04] LABS: CARBON DIOXIDE 29 mmol/L (21-32); CHLORIDE 108 mmol/L (98-107); CREATININE 0.5 mg/dL (0.6-1.3); GLUCOSE 95 mg/dL (74-106); MAGNESIUM 1.9 mg/dL (1.8-2.4); PHOSPHOROUS 3.2 mg/dL (2.5-4.9); POTASSIUM 4.1 mmol/L (3.5-5.1); UREA NITROGEN, BLOOD 12 mg/dL (7-18)
[2020-12-11 07:50] VITALS: BP 111/59
--- NOTE | 2020-12-11 08:00 | NUR ---
received patient laying in bed in no acute distress. patient is alert and oriented 2-3, currently bed bound and maximum assist. Patient with v/s 11.59, 107, 20, 98.0, spo2 93% on 2L via n/c pain 0/10. patient is currently NPO on jevity 1.2 @ 65cc x 2 hr and tolerating well, 0 residual noted at this time. patient is on telemetry currently showing sinus tach. patient with f/c in place and patent draining yellow urine, 0 sedimentation note at this time. currently with a Right AC 20g in place and patent, dressing clean and dry. reminded patient to use call light for assistance. side rails up x2 will monitor.
[2020-12-11] MEDS: IPRATROPIUM BROMIDE 0.5 MG/2.5 ML NEBU NEB PRN ×3 (08:25→23:42)
[2020-12-11] MEDS: ACETYLCYSTEINE 10% 4ML VIAL NEB SCH ×3 (08:25→23:41)
[2020-12-11] MEDS: levETIRAcetam 500 MG/5 ML LIQUID UDC GT SCH ×2 (08:43→21:26)
[2020-12-11] MEDS: METOPROLOL TARTRATE 50 MG TABLET GT SCH ×2 (08:44→21:00)
[2020-12-11] MEDS: CARBIDOPA/LEVODOPA 25-100MG TABLET GT SCH ×3 (08:44→17:48)
[2020-12-11] MEDS: MEMANTINE HCL 5 MG TABLET GT SCH ×2 (08:44→17:48)
[2020-12-11] MEDS: ASCORBIC ACID 500 MG TABLET GT SCH (08:44)
[2020-12-11] MEDS: APIXABAN 5 MG TABLET GT SCH ×2 (08:44→17:49)
[2020-12-11] MEDS: AMLODIPINE 5 MG TABLET GT SCH (08:44)
[2020-12-11] MEDS: ESCITALOPRAM OXALATE 10 MG TABLET GT SCH ×2 (08:45→21:25)
[2020-12-11] MEDS: DORZOLAMIDE/TIMOLOL OPHT DROP 10 ML BOTTLE EACHEYE SCH ×2 (08:45→17:49)
[2020-12-11] MEDS: CLOTRIMAZOLE 1% CREAM 30 GM TUBE TOP SCH ×2 (08:46→17:07)
[2020-12-11] MEDS ORDERED: PANTOPRAZOLE SODIUM 40 MG TABLET.DR PO SCH (09:00)
[2020-12-11] MEDS ORDERED: IPRATROPIUM BROMIDE 0.5 MG/2.5 ML NEBU NEB PRN (11:15)
[2020-12-11 12:00] VITALS: BP 143/65
[2020-12-11] MEDS: FLUCONAZOLE 200 MG/NS 100ML IV 200 MG in PREMIXED 1 EACH IV SCH (12:58)
--- NOTE | 2020-12-11 15:00 | NUR ---
DTR at bedside requesting a ST consult, MD Negro notified with new order for ST, noted and carried out. Family made aware.
[2020-12-11 15:42] VITALS: BP 128/73
[2020-12-11] MEDS: BRIMONIDINE 0.2% OPHT DROP 10 ML BOTTLE EACHEYE SCH (17:49)
[2020-12-11] MEDS: JEVITY 1.2 1000 ML LIQUID GT PRN (18:10)
[2020-12-11] MEDS: LORAZEPAM 2 MG/1 ML VIAL IV PRN (18:15)
--- NOTE | 2020-12-11 18:15 | NUR ---
patient stating feeling anxious and asking for ativan, prn iv ativan administered and tolerated well.
--- NOTE | 2020-12-11 18:38 | NUR ---
patient remains stable at this time, new order for Diflucan IV 200mg administered and tolerated well with no a/r.
[2020-12-11 19:53] VITALS: BP 91/49
[2020-12-11] MEDS: ATORVASTATIN 10 MG TABLET GT SCH (21:25)
[2020-12-11] MEDS: LATANOPROST OPHT DROP 2.5 ML BOTTLE EACHEYE SCH (21:28)
[2020-12-12 04:30] VITALS: BP 149/73
--- NOTE | 2020-12-12 05:53 | NUR ---
Pt slept throughout the night. Denies pain or SOB. Able to use call light and make needs known. Pt given bed bath and hair was washed. IV site intact. GT intact running Jevity 1.2, will be off from [id number], no residual. Gamble intact draining clear alicia, yellow urine. No other issues or concerns at this time, will endorse to day shift.
[2020-12-12] MEDS: MEROPENEM 1 G in IV NORMAL SALINE 100 ML IV SCH ×2 (06:13→13:37)
[2020-12-12] MEDS: PANTOPRAZOLE ORAL SUSPENSION 40 MG SUSPDR.PKT GT SCH (06:14)
[2020-12-12 06:53] LABS: HEMATOCRIT 31.2 % (31.2-41.9); PLATELET COUNT (AUTO) 951 K/uL (179-408)
[2020-12-12 07:24] LABS: CARBON DIOXIDE 31 mmol/L (21-32); CHLORIDE 103 mmol/L (98-107); CREATININE 0.5 mg/dL (0.6-1.3); GLUCOSE 128 mg/dL (74-106); MAGNESIUM 1.8 mg/dL (1.8-2.4); PHOSPHOROUS 2.9 mg/dL (2.5-4.9); UREA NITROGEN, BLOOD 10 mg/dL (7-18)
[2020-12-12] MEDS: IPRATROPIUM BROMIDE 0.5 MG/2.5 ML NEBU NEB PRN (07:26)
[2020-12-12] MEDS: ACETYLCYSTEINE 10% 4ML VIAL NEB SCH (07:26)
[2020-12-12] MEDS: DORZOLAMIDE/TIMOLOL OPHT DROP 10 ML BOTTLE EACHEYE SCH (08:38)
[2020-12-12] MEDS: BRIMONIDINE 0.2% OPHT DROP 10 ML BOTTLE EACHEYE SCH (08:39)
[2020-12-12] MEDS: ASCORBIC ACID 500 MG TABLET GT SCH (08:39)
[2020-12-12] MEDS: CARBIDOPA/LEVODOPA 25-100MG TABLET GT SCH ×2 (08:39→12:20)
[2020-12-12] MEDS: ESCITALOPRAM OXALATE 10 MG TABLET GT SCH (08:39)
[2020-12-12] MEDS: MEMANTINE HCL 5 MG TABLET GT SCH (08:40)
[2020-12-12] MEDS: AMLODIPINE 5 MG TABLET GT SCH (08:41)
[2020-12-12] MEDS: METOPROLOL TARTRATE 50 MG TABLET GT SCH (08:41)
[2020-12-12] MEDS: levETIRAcetam 500 MG/5 ML LIQUID UDC GT SCH (08:42)
[2020-12-12] MEDS: CLOTRIMAZOLE 1% CREAM 30 GM TUBE TOP SCH (08:42)
[2020-12-12] MEDS: APIXABAN 5 MG TABLET GT SCH (08:44)
[2020-12-12] MEDS ORDERED: FLUC200T PO (11:28)
[2020-12-12 11:42] VITALS: BP 120/63
[2020-12-12] MEDS: FLUCONAZOLE 200 MG/NS 100ML IV 200 MG in PREMIXED 1 EACH IV SCH (12:28)
--- NOTE | 2020-12-12 13:35 | NUR ---
CALLED [facility] SPOKE TO SHERRILL TO GIVE THE REPORT, HE TREANFERRED TO RADHA FOR REPORT, DON NEVER ANSWERED, CALLED AGAIN, SPOKE TO SAME PERSON AGAIN, HE STATED HE IS GOING TO PAGE HIS DON. WAITING FOR RESPONSE.
--- NOTE | 2020-12-12 13:43 | NUR ---
REPORT GIVEN TO TERESA FROM THE [facility]
[2020-12-12] MEDS: LORAZEPAM 2 MG/1 ML VIAL IV PRN (14:21)
--- NOTE | 2020-12-12 15:05 | NUR ---
patient is stable condition,discharged to [facility], stable condition, IV removed, belongings one pillow,patient refused to take it with her. picked up by ambulance, longo catheter intact, g-tube intact.
== END 2020-12-12 15:15 | DRG 871 ==
LOC: ER 20:28 → MEDSURG3 12-08 02:24 → TELE3 12-08 03:00 → MEDSURG3 12-11 10:44
PROVIDERS: ADMIT Internal Medicine; ATTEND Student in an Organized Health Care Education/Training Program
DX: A41.9 Sepsis, unspecified organism (principal); G92.8 Other toxic encephalopathy; J69.0 Pneumonitis due to inhalation of food and vomit; E43 Unspecified severe protein-calorie malnutrition; D68.59 Other primary thrombophilia; M84.48XA Pathological fracture, other site, initial encounter for fracture; I31.3 Pericardial effusion (noninflammatory); J90 Pleural effusion, not elsewhere classified; B37.49 Other urogenital candidiasis; G40.909 Epilepsy, unspecified, not intractable, without status epilepticus; D50.9 Iron deficiency anemia, unspecified; D75.839 Thrombocytosis, unspecified; E27.8 Other specified disorders of adrenal gland; E78.5 Hyperlipidemia, unspecified; G20 Parkinson's disease; Z20.822 Contact with and (suspected) exposure to COVID-19; Z88.0 Allergy status to penicillin; K62.89 Other specified diseases of anus and rectum; F02.80 Dementia in other diseases classified elsewhere, unspecified severity, without behavioral disturbance, psychotic disturbance, mood disturbance, and anxiety; R13.10 Dysphagia, unspecified; M19.90 Unspecified osteoarthritis, unspecified site; Z90.49 Acquired absence of other specified parts of digestive tract; K59.00 Constipation, unspecified; Z68.22 Body mass index [BMI] 22.0-22.9, adult; Z74.09 Other reduced mobility; Z79.01 Long term (current) use of anticoagulants
CPT/HCPCS: 36415; 70030-TC; 71045; 73502; 82378; 83550; 83605; 83735; 84100; 84443; 85025; 85730; 87040; 87086; 93005; 94640; 94664; A4217; A4663; A6209; C9113; G0378; J0696; J1450; J1953; J2060; J2185; J2270; J3370; J3490; J3590; J7030; J7040; J7042; J7060

== ENCOUNTER 2021-07-30 18:05 | Inpatient (IN) | payer MEDICARE, OTHER ==
[~2021-07-30] VITALS: Ht 165.1 cm; Wt 69.0 kg
[~2021-07-30 18:05] MED LIST changes: +ACET-2154 GT; +ACET100V5 IH; +AMLO-212 GT; +APIX5TAB GT; +ASCO500T10 GT; -ATOR10TA PO; +BIMA2.5D5 EACHEYE; +BISA10SU11 RC; +BRIM5DRO EACHEYE; +CARB-93 GT; -CARB-93 PO; +CLON0.1T GT; +DORZ10DR11 EACHEYE; -DULO60CA45 PO; +ESCI-9 GT; +FLUC200T PO; +IPRA12.9 IH; +IPRA3AMP23 IH; -LACT1TAB12 PO; +LEVE500S9 GT; -LEVE500T9 GT; -LISI10TA29 PO; +MEMA5TAB GT; +METO100T14 GT; -METO100T7 PO; +ONDA-104 GT; +PANT40TA2 GT; -PRAM0.122 PO; +PRAV20TA4 GT
[2021-07-30] MEDS ORDERED: DIVA125C2 GT (19:19)
[2021-07-30] MEDS ORDERED: NETA2.5D3 EACHEYE (19:19)
[2021-07-30] MEDS ORDERED: ONDA4TAB5 GT (19:19)
[2021-07-30] MEDS ORDERED: LORA-258 GT (19:19)
[2021-07-30] MEDS ORDERED: MULT-594 GT (19:19)
[2021-07-30 19:27] LABS: CARBON DIOXIDE 21 mmol/L (21-32); CREATININE 0.3 mg/dL (0.6-1.3); GLUCOSE 111 mg/dL (74-106); UREA NITROGEN, BLOOD 10 mg/dL (7-18)
[2021-07-30 19:34] LABS: MEAN CORPUSCULAR HEMOGLOBIN 31.5 uug (24.7-32.8); MEAN CORPUSCULAR VOLUME 90.1 fL (75.5-95.3)
[2021-07-30 19:35] LABS: ALANINE AMINOTRANSFERASE 10 U/L (14-59); ALKALINE PHOSPHATASE 56 U/L (50-136); ASPARTATE AMINOTRANSFERASE 18 U/L (15-37); BILIRUBIN,DIRECT 0.1 mg/dL (0.0-0.2); BILIRUBIN,TOTAL 0.6 mg/dL (0.2-1.0); TOTAL PROTEIN, SERUM 6.6 g/dL (6.4-8.2)
[2021-07-30 19:40] LABS: THYROID STIMULATING HORMONE 2.416 mIU/mL (0.358-3.740)
[2021-07-30 19:41] LABS: PLATELET COUNT (AUTO) 2515 K/uL (179-408)
[2021-07-30 19:42] LABS: CHLORIDE 72 mmol/L (98-107)
[2021-07-30] MEDS ORDERED: IV NS 1000 ML 1,000 ML IV ONE (20:15)
[2021-07-30 21:27] LABS: BAND % (MANUAL) 4 % (0-10); EOSINOPHILS % (MANUAL) 6 % (0-8); LYMPHOCYTES % (MANUAL) 6 % (20-40); MONOCYTES % (MANUAL) 5 % (2-10); NEUTROPHILS % (MANUAL) 79 % (42-75)
[2021-07-30] MEDS ORDERED: IV SODIUM CHLORIDE 3% 500 ML IV ONE (22:15)
[2021-07-30] MEDS ORDERED: ONDANSETRON 4 MG/2 ML VIAL IV PRN (22:15)
[2021-07-30] MEDS ORDERED: ENOXAPARIN SODIUM 40 MG/0.4 ML DISP.SYRIN SQ SCH (22:15)
[2021-07-30] MEDS ORDERED: CLONIDINE HCL 0.1 MG TABLET GT PRN (22:30)
--- NOTE | 2021-07-30 22:36 | NUR ---
Report given to Yanna MCNEIL.
[2021-07-30] MEDS ORDERED: VANCOMYCIN IV 1,250 MG in IV DEXTROSE 5% 250 ML IV ONE (23:45)
[2021-07-31] VITALS (23 sets, daily range): BP systolic 83–147; BP diastolic 34–102
--- NOTE | 2021-07-31 | NUR ---
pt is awake and is talking to self. Resp is evenand unlabored, VS WNL.
--- NOTE | 2021-07-31 00:25 | NUR ---
pt taken to CCU room 2 via thomas with all belongings.
--- NOTE | 2021-07-31 00:30 | NUR ---
received from ER DX:hyponatremia and leukocytosis came via [facility] patient aaox2, lower and upper extremities contracted,patient able to answer simple question verbally responsive know her name birthday and aware shes in [facility] but unable to give medical information or history . on nasal cannula at 2 liter /min . no sob no respiratory ,rr 19 saturation 94 %,lung sounds all throughout clear .cough non productive . with gastrostomy tube clamp dressing CDI.incontinent of urine .inserted Gamble catheter no. 14 done aseptically urine samples collected and send to lab. photo taken on patients bilateral groin and sacral area redness ,will order wound consult and kci mattress.offloaded back with pillows and bilateral heels off bed . call light placed with in reach and advised patient to call for help or assistance and not to get oob .
--- NOTE | 2021-07-31 00:45 | NUR ---
inserted H/L no.20 left hand to start antibiotics .
--- NOTE | 2021-07-31 01:00 | NUR ---
belonging list checked patient came only with cellphone and a charge .
[2021-07-31] MEDS ORDERED: levoFLOXacin 500 MG/D5W 100 ML ONE (01:04)
[2021-07-31] MEDS ORDERED: VANCOMYCIN IV 200 ML ONE (01:04)
[2021-07-31] MEDS ORDERED: IV SODIUM CHLORIDE 3% 500 ML IV ONE (01:18)
[2021-07-31] MEDS: levoFLOXacin 500 MG/D5W 500 MG in PREMIXED 1 EACH IV SCH ×2 (01:28→20:47)
--- NOTE | 2021-07-31 04:12 | NUR ---
PADDED SIDE RAILS C/O SEIZURES PRECAUTION .
[2021-07-31] MEDS ORDERED: VANCOMYCIN HCL 500 MG VIAL ONE (04:17)
--- NOTE | 2021-07-31 04:39 | NUR ---
informed respiratory therapist patient needs incentive inspirometry(IS) at b/s and sputum expectorated for gram stain .
[2021-07-31 05:20] LABS: HEMATOCRIT 32.8 % (31.2-41.9); MEAN CORPUSCULAR HEMOGLOBIN 31.7 uug (24.7-32.8); MEAN CORPUSCULAR VOLUME 88.9 fL (75.5-95.3)
[2021-07-31 05:27] LABS: ALANINE AMINOTRANSFERASE 8 U/L (14-59); ALKALINE PHOSPHATASE 52 U/L (50-136); ASPARTATE AMINOTRANSFERASE 14 U/L (15-37); BILIRUBIN,TOTAL 0.5 mg/dL (0.2-1.0); CARBON DIOXIDE 22 mmol/L (21-32); CREATININE 0.3 mg/dL (0.6-1.3); GLUCOSE 111 mg/dL (74-106); MAGNESIUM 1.4 mg/dL (1.8-2.4); PHOSPHOROUS 1.9 mg/dL (2.5-4.9); PLATELET COUNT (AUTO) 2405 K/uL (179-408); POTASSIUM 3.4 mmol/L (3.5-5.1); UREA NITROGEN, BLOOD 9 mg/dL (7-18)
[2021-07-31 05:30] LABS: CHLORIDE 78 mmol/L (98-107)
[2021-07-31 05:39] LABS: THYROID STIMULATING HORMONE 2.218 mIU/mL (0.358-3.740)
[2021-07-31 05:54] LABS: *BILIRUBIN,URIN NEGATIVE (NEGATIVE); *BLOOD, URINE 3+ (NEGATIVE); *CLARITY,URINE CLOUDY (CLEAR); *COLOR,URINE YELLOW (YELLOW); *KETONES,URINE NEGATIVE (NEGATIVE); *UROBILINOGEN,URINE 0.2 E.U./dl (NORMAL); LEUKOCYTE ESTERASE ,URINE 3+ (NEGATIVE); NITRITE, URINE NEGATIVE (NEGATIVE); UGLUCOSE NEGATIVE (NEGATIVE)
[2021-07-31 06:09] LABS: *URINE TOTAL PROTEIN RANDOM 25.8 mg/dL (<150/24HR)
[2021-07-31 06:10] LABS: BACTERIA,URINE MODERATE /HPF (NONE SEEN); RBC,URINE TNTC /HPF (0-3); SQUAMOUS EPITHELIAL CELL,UR MODERATE /HPF (NONE SEEN); WBC,URINE 20-50 /HPF (0-3)
[2021-07-31] MEDS: PANTOPRAZOLE ORAL SUSPENSION 40 MG SUSPDR.PKT GT SCH (06:30)
[2021-07-31] MEDS ORDERED: PANTOPRAZOLE SODIUM 40 MG TABLET.DR PO SCH (07:00)
[2021-07-31] MEDS ORDERED: IV SODIUM CHLORIDE 3% 500 ML IV PRN (07:30)
[2021-07-31] MEDS ORDERED: PANTOPRAZOLE SODIUM 40 MG VIAL IV SCH (09:00)
[2021-07-31] MEDS: levETIRAcetam 500 MG/5 ML LIQUID UDC GT SCH ×2 (09:05→16:07)
[2021-07-31] MEDS: METOPROLOL TARTRATE 50 MG TABLET GT SCH ×2 (09:06→16:11)
[2021-07-31] MEDS: AMLODIPINE 5 MG TABLET GT SCH (09:06)
[2021-07-31] MEDS: CARBIDOPA/LEVODOPA 25-100MG TABLET GT SCH ×3 (09:07→16:11)
[2021-07-31] MEDS: MEMANTINE HCL 5 MG TABLET GT SCH ×2 (09:07→16:12)
[2021-07-31] MEDS: DIVALPROEX SPRINKLE 125 MG CAP.SPRINK PO SCH ×3 (09:07→16:08)
[2021-07-31] MEDS: REMEDY ESSENTIAL ZINC PASTE 113 GM TOP SCH ×2 (09:08→21:00)
[2021-07-31] MEDS ORDERED: POTASSIUM PHOSPHATE MM 15 MMOL in IV NORMAL SALINE 250 ML IV ONE (10:00)
[2021-07-31] MEDS: MULTIVITAMINS,THERAPEUTIC TABLET GT SCH (10:41)
[2021-07-31] MEDS: MAGNESIUM SULFATE/D5W 100 ML IV SCH ×2 (10:43→13:21)
[2021-07-31 11:18] LABS: CARBON DIOXIDE 21 mmol/L (21-32); CREATININE 0.3 mg/dL (0.6-1.3); GLUCOSE 105 mg/dL (74-106); UREA NITROGEN, BLOOD 9 mg/dL (7-18)
[2021-07-31 11:23] LABS: CHLORIDE 80 mmol/L (98-107)
[2021-07-31] MEDS: HYDROXYUREA 500 MG CAPSULE PO SCH (16:06)
[2021-07-31] MEDS ORDERED: APIXABAN 5 MG TABLET GT SCH (17:00)
[2021-07-31] MEDS ORDERED: JEVITY 1.2 1000 ML LIQUID GT SCH (20:00)
--- NOTE | 2021-07-31 20:00 | NUR ---
pt received in bed awake and with a distict drawl. Pt ois talkative. O2 is in place at 3L/NC. pEG TUBE INTACT AND PATENT jEVITY I PROGRESS ORDERED. nO RESIDUAL. Pt is restless. Pt repositioned. Gamble cath in p;karla and is draining below bladder, Bed is in lowest position. Will continue to monitor.
[2021-07-31] MEDS ORDERED: JEVITY 1.2 1000 ML LIQUID GT PRN (20:15)
[2021-07-31] MEDS: LORAZEPAM 0.5 MG TABLET GT PRN (20:41)
[2021-07-31] MEDS: ATORVASTATIN 10 MG TABLET GT SCH (20:41)
--- NOTE | 2021-07-31 23:40 | NUR ---
Patient is complaining pain all over her body and is anxious. Ativan was given 2100 by primary RN Kelly. Called [facility] exchange and spoke with Dr Renee regarding patient's condition. Per Dr Renee, to give Morphine Sulfate 2mg IV Q4 PRN, and one extra dose of Ativan 1mg IV now. Dr Renee is aware of patient's allergy to codeine and responded, "It's ok to give to her just watch her after." Noted and carried out.
[2021-08-01] VITALS (24 sets, daily range): BP systolic 55–140; BP diastolic 30–70
[2021-08-01] MEDS ORDERED: LORAZEPAM 2 MG/1 ML VIAL IV ONE
[2021-08-01] MEDS: MORPHINE SULFATE 2 MG/1 ML DISP.SYRIN IV PRN (00:34)
[2021-08-01] MEDS: VANCOMYCIN IV 1,000 MG in IV DEXTROSE 5% 250 ML IV SCH (00:39)
[2021-08-01] MEDS ORDERED: LORAZEPAM 2 MG/1 ML VIAL ONE (01:11)
--- NOTE | 2021-08-01 02:00 | NUR ---
Air filled mattress applied to bed to protect skin. Pt is asleep VS stable. Please refer to nursing floe record for vital signs.
[2021-08-01] MEDS: ENOXAPARIN SODIUM 40 MG/0.4 ML DISP.SYRIN SQ SCH ×2 (02:49→21:23)
[2021-08-01 05:52] LABS: CARBON DIOXIDE 22 mmol/L (21-32); CHLORIDE 85 mmol/L (98-107); CREATININE 0.5 mg/dL (0.6-1.3); GLUCOSE 113 mg/dL (74-106); POTASSIUM 2.9 mmol/L (3.5-5.1); UREA NITROGEN, BLOOD 8 mg/dL (7-18)
--- NOTE | 2021-08-01 07:30 | NUR ---
Hands off care Report given to am RN. Pt is asleep. Resp is even and is unlabored. Pt is aroussable too command.
[2021-08-01] MEDS: PANTOPRAZOLE ORAL SUSPENSION 40 MG SUSPDR.PKT GT SCH (09:15)
[2021-08-01] MEDS: DIVALPROEX SPRINKLE 125 MG CAP.SPRINK PO SCH ×3 (09:47→18:02)
[2021-08-01] MEDS: levETIRAcetam 500 MG/5 ML LIQUID UDC GT SCH ×2 (09:47→17:57)
[2021-08-01] MEDS: HYDROXYUREA 500 MG CAPSULE PO SCH (09:49)
[2021-08-01] MEDS: CARBIDOPA/LEVODOPA 25-100MG TABLET GT SCH ×3 (09:50→17:58)
[2021-08-01] MEDS: MEMANTINE HCL 5 MG TABLET GT SCH ×2 (09:50→18:02)
[2021-08-01] MEDS: MULTIVITAMINS,THERAPEUTIC TABLET GT SCH (09:50)
[2021-08-01] MEDS: METOPROLOL TARTRATE 50 MG TABLET GT SCH ×2 (09:51→17:00)
[2021-08-01] MEDS: AMLODIPINE 5 MG TABLET GT SCH (09:51)
[2021-08-01] MEDS: REMEDY ESSENTIAL ZINC PASTE 113 GM TOP SCH ×2 (09:52→21:23)
[2021-08-01] MEDS ORDERED: POTASSIUM CHLORIDE 20 MEQ POWDER PACKET GT ONE (10:00)
[2021-08-01 10:53] LABS: CARBON DIOXIDE 24 mmol/L (21-32); CHLORIDE 87 mmol/L (98-107); CREATININE 0.3 mg/dL (0.6-1.3); GLUCOSE 95 mg/dL (74-106); UREA NITROGEN, BLOOD 8 mg/dL (7-18)
[2021-08-01 10:54] LABS: POTASSIUM 2.8 mmol/L (3.5-5.1)
--- NOTE | 2021-08-01 12:32 | NUR ---
WOUND CARE CONSULT: PT PRESENTS WITH SACRAL INTACT DEEP TISSUE INJURY AND SURROUNDING SCAR WELL RED RASH TO PERINEUM, GROIN FOLDS AND INNER THIGHS, PRESENT ON ADMISSION. RECOMMENDATIONS MADE FOR SKIN PROTECTION. DISCUSSED WITH NURSING STAFF. PT IS ON FIRST STEP JORGE MELTON MD IN AGREEMENT WITH PLAN OF CARE. Addendum: 08/01/21 at 1233 by TERESITA SELBY RN Amended: Links added.
[2021-08-01] MEDS: CLOTRIMAZOLE 1% CREAM 30 GM TUBE TOP SCH (17:58)
[2021-08-01] MEDS ORDERED: IV NORMAL SALINE 250 ML IV ONE (20:45)
[2021-08-01] MEDS ORDERED: ENOXAPARIN SODIUM 40 MG/0.4 ML DISP.SYRIN SQ SCH (21:00)
--- NOTE | 2021-08-01 21:00 | NUR ---
BOLUS WITH 250 NS ORDERED FOR SBP 78. PT TOLERATES FLUID.HERNANDEZ CATHETER IS IS. WILL MONITOR ,
[2021-08-01] MEDS: ATORVASTATIN 10 MG TABLET GT SCH (21:22)
[2021-08-01] MEDS: levoFLOXacin 500 MG/D5W 500 MG in PREMIXED 1 EACH IV SCH (21:22)
--- NOTE | 2021-08-01 21:45 | NUR ---
Spoke with Dr Renee with new orders. Per Dr Renee, to DC all BP medications and order metoprolol 5mg IV Q6 PRN parameters SBP >150. Noted and carried out. Primary nurse Kelly huston.
[2021-08-01] MEDS ORDERED: METOPROLOL TARTRATE 5 MG/5 ML VIAL IVP PRN (22:00)
[2021-08-01] MEDS ORDERED: ACETAMINOPHEN 650 MG/20.3 ML LIQUID UDC ONE (23:09)
[2021-08-01] MEDS: ACETAMINOPHEN 650 MG/20.3 ML LIQUID UDC GT PRN (23:14)
[2021-08-01] MEDS ORDERED: IV NORMAL SALINE 500 ML IV ONE (23:15)
[2021-08-01] MEDS: NOREPINEPHRINE BITARTRATE 8 MG in IV NORMAL SALINE 242 ML IV PRN (23:28)
[2021-08-01] MEDS ORDERED: NOREPINEPHRINE BITARTRATE 8 MG in IV NORMAL SALINE 242 ML IV PRN (23:30)
--- NOTE | 2021-08-01 23:30 | NUR ---
Contacted Dr. Prakash regarding patient's condition. Per Dwain, to give NS 500ml bolus, tylenol 650mg GT, levophed 8mg per hospital protocol. Noted and carried out. Primary nurse Kelly MCNEIL aware.
[2021-08-02] VITALS (75 sets, daily range): BP systolic 67–127; BP diastolic 22–76
[2021-08-02] MEDS: VANCOMYCIN IV 1,000 MG in IV DEXTROSE 5% 250 ML IV SCH (01:20)
--- NOTE | 2021-08-02 04:28 | NUR ---
ASSUME CARE OF PATIENT AT THIS TIME. PT RECEIVED OBPUNDED. PT IS AROUSABLE. RESP IS UNLABORED ON O2 3L VIA NASAL CANULA.HOB 30. PEG TUBE INTACT AND PATENT. TUBE FEED IS IN PROGRESS. PT HERNANDEZ DISCONNECTED FROM THE DRAINAGE BAG. NEW DRAINAGE BAG ATTACHED. RN ON DAY CALLED TO BEDSIDE TO NOTE SAME.BP 79/48. HOB LOWERED TO SUPPORT BP. MD TUCKER PAGED TO UPDATE OF PATIENT'S STATUS. AWAITING CALL BACK.
--- NOTE | 2021-08-02 04:44 | NUR ---
TITRATE LEVOPHED UP FOR SBP 68. PLEASE SEE IV SPREAD SHEET. PATIENT IS LETHARGIC. RESPONSIVE. COUGHS PRODUCTIVE. HR 138. ABP 154. LEVO OFF. O2SAT 95. RT PAGED TO EVALUATE PATIENT, PAGED FOR ORDERS AND TO UPDATE.
--- NOTE | 2021-08-02 05:20 | NUR ---
MD OCAMPO REGARGING LETHAFY.AND SNORING OBTAINED ORDER FOR ABG AND XRA. RT AT THE BEDSIDE. LEVOPHED RESUME.Y
[2021-08-02 06:03] LABS: ABG BASE EXCESS -2.1 mmol/L; ABG HCO3 23.1 mmol/L; ABG PCO2 41.2 mmHg (35.0-45.0); ABG PH 7.366 (7.350-7.450); ABG PO2 81.9 mmHg (75.0-100.0); ABG SITE LEFT RADIAL; ABG TOTAL HEMOGLOBIN 12.8 G/dL (12.0-16.0); COHb 0.4 % (0.5-1.5); MetHb 0.3 % (0.0-1.5); VENT MODE Nasal Cannula
[2021-08-02] MEDS: PANTOPRAZOLE ORAL SUSPENSION 40 MG SUSPDR.PKT GT SCH (06:05)
[2021-08-02 06:13] LABS: HEMATOCRIT 37.3 % (31.2-41.9); MEAN CORPUSCULAR HEMOGLOBIN 31.6 uug (24.7-32.8); MEAN CORPUSCULAR VOLUME 93.1 fL (75.5-95.3)
--- NOTE | 2021-08-02 06:21 | NUR ---
ABG RESULTS ARE NORMAL O2SAT 96. PATIENT WOKE UP TALKEIMG WILL CONTINUE TO MONITOR. LEVOPHED IN PROGRES .12 MCG/KG/MIN.. HOB 90. SUCTION CREAMYY TENACIOUS. PT TOLERATED PROCEDURE
[2021-08-02 06:27] LABS: PLATELET COUNT (AUTO) 2675 K/uL (179-408)
[2021-08-02 06:34] LABS: ALANINE AMINOTRANSFERASE 8 U/L (14-59); ALKALINE PHOSPHATASE 54 U/L (50-136); ASPARTATE AMINOTRANSFERASE 17 U/L (15-37); BILIRUBIN,TOTAL 0.3 mg/dL (0.2-1.0); CARBON DIOXIDE 21 mmol/L (21-32); CHLORIDE 96 mmol/L (98-107); CREATININE 0.5 mg/dL (0.6-1.3); GLUCOSE 135 mg/dL (74-106); PHOSPHOROUS 3.6 mg/dL (2.5-4.9); POTASSIUM 3.7 mmol/L (3.5-5.1); TOTAL PROTEIN, SERUM 6.3 g/dL (6.4-8.2); UREA NITROGEN, BLOOD 9 mg/dL (7-18)
[2021-08-02 07:15] LABS: BAND % (MANUAL) 3 % (0-10); BASOPHILS % (MANUAL) 1 % (0-2); LYMPHOCYTES % (MANUAL) 7 % (20-40); METAMYELOCYTES % 1 % (0-1); MONOCYTES % (MANUAL) 1 % (2-10); NEUTROPHILS % (MANUAL) 87 % (42-75)
[2021-08-02] MEDS: MEMANTINE HCL 5 MG TABLET GT SCH ×2 (08:24→18:17)
[2021-08-02] MEDS: MULTIVITAMINS,THERAPEUTIC TABLET GT SCH (08:24)
[2021-08-02] MEDS: levETIRAcetam 500 MG/5 ML LIQUID UDC GT SCH ×2 (08:24→18:17)
[2021-08-02] MEDS: CARBIDOPA/LEVODOPA 25-100MG TABLET GT SCH ×3 (08:26→18:17)
[2021-08-02] MEDS: HYDROXYUREA 500 MG CAPSULE PO SCH (08:28)
[2021-08-02] MEDS: DIVALPROEX SPRINKLE 125 MG CAP.SPRINK PO SCH ×3 (08:28→18:17)
[2021-08-02] MEDS: CLOTRIMAZOLE 1% CREAM 30 GM TUBE TOP SCH ×2 (08:29→18:18)
[2021-08-02] MEDS: REMEDY ESSENTIAL ZINC PASTE 113 GM TOP SCH ×2 (08:29→21:35)
[2021-08-02 10:26] LABS: CARBON DIOXIDE 25 mmol/L (21-32); CHLORIDE 99 mmol/L (98-107); CREATININE 0.5 mg/dL (0.6-1.3); GLUCOSE 137 mg/dL (74-106); POTASSIUM 3.8 mmol/L (3.5-5.1); UREA NITROGEN, BLOOD 9 mg/dL (7-18)
[2021-08-02] MEDS ORDERED: CEFTRIAXONE 1 G in IV DEXTROSE 5% 50 ML IV SCH (12:00)
[2021-08-02] MEDS: ACIDOPHILUS/BULGARICUS CHEW TAB GT SCH ×2 (12:10→21:34)
[2021-08-02] MEDS: MUPIROCIN 2% OINT 22 GM TUBE NS SCH ×2 (12:16→21:34)
[2021-08-02] MEDS: MORPHINE SULFATE 2 MG/1 ML DISP.SYRIN IV PRN (12:24)
--- NOTE | 2021-08-02 15:36 | NUR ---
called and spoke with Dr. Epperson to clarify when biopsy was to be done. plan is for biopsy once patient is out of ICU. Also informed her that daughter wanted an update regarding her condition by her standpoint. Dr. epperson to come in later today to see patient and will call the daughter at that point. Addendum: 08/03/21 at 0131 by REGISTRY [facility] INPATIENT RN3 RN TYLENOL INEFFECTIVE. PT STATES I WANT SOMETHING ELSE. WILL ADMINISTER MORPHINE SULFATE ORDERED.
[2021-08-02] MEDS: ATORVASTATIN 10 MG TABLET GT SCH (21:34)
[2021-08-02] MEDS: ENOXAPARIN SODIUM 40 MG/0.4 ML DISP.SYRIN SQ SCH (21:36)
[2021-08-02] MEDS: NOREPINEPHRINE BITARTRATE 8 MG in IV NORMAL SALINE 242 ML IV PRN (21:44)
[2021-08-02] MEDS: MEROPENEM 1 G in IV NORMAL SALINE 100 ML IV SCH (22:00)
[2021-08-02] MEDS ORDERED: MEROPENEM 1 G in IV NORMAL SALINE 100 ML IV SCH (22:00)
[2021-08-03] VITALS (58 sets, daily range): BP systolic 61–144; BP diastolic 32–66
[2021-08-03] MEDS ORDERED: MEROPENEM 1GM/NS 100ML IVPB **ER PYXIS ONLY IV ONE (00:27)
[2021-08-03] MEDS ORDERED: MEROPENEM 1 G VIAL IV ONE (00:27)
[2021-08-03] MEDS: MORPHINE SULFATE 2 MG/1 ML DISP.SYRIN IV PRN ×2 (01:37→09:09)
[2021-08-03] MEDS ORDERED: IV NORMAL SALINE 250 ML IV PRN (02:00)
[2021-08-03] MEDS: ACETAMINOPHEN 650 MG/20.3 ML LIQUID UDC GT PRN (05:06)
[2021-08-03] MEDS: PANTOPRAZOLE ORAL SUSPENSION 40 MG SUSPDR.PKT GT SCH (05:06)
[2021-08-03] MEDS: BISACODYL 10 MG SUPP.RECT RC PRN (05:11)
[2021-08-03 05:48] LABS: HEMATOCRIT 34.2 % (31.2-41.9); MEAN CORPUSCULAR HEMOGLOBIN 31.5 uug (24.7-32.8); MEAN CORPUSCULAR VOLUME 92.7 fL (75.5-95.3)
[2021-08-03 05:59] LABS: MAGNESIUM 1.8 mg/dL (1.8-2.4); PHOSPHOROUS 3.4 mg/dL (2.5-4.9)
[2021-08-03 06:10] LABS: PLATELET COUNT (AUTO) 2411 K/uL (179-408)
[2021-08-03] MEDS: MEROPENEM 1 G in IV NORMAL SALINE 100 ML IV SCH ×3 (06:14→21:11)
[2021-08-03 08:05] LABS: MONOCYTES % (MANUAL) 2 % (2-10)
[2021-08-03] MEDS: ACIDOPHILUS/BULGARICUS CHEW TAB GT SCH ×2 (08:39→21:03)
[2021-08-03] MEDS: MEMANTINE HCL 5 MG TABLET GT SCH ×2 (08:39→17:45)
[2021-08-03] MEDS: MULTIVITAMINS,THERAPEUTIC TABLET GT SCH (08:39)
[2021-08-03] MEDS: DIVALPROEX SPRINKLE 125 MG CAP.SPRINK PO SCH ×2 (08:39→21:02)
[2021-08-03] MEDS: levETIRAcetam 500 MG/5 ML LIQUID UDC GT SCH ×2 (08:40→17:45)
[2021-08-03] MEDS: CARBIDOPA/LEVODOPA 25-100MG TABLET GT SCH ×3 (08:40→17:45)
[2021-08-03] MEDS: MUPIROCIN 2% OINT 22 GM TUBE NS SCH ×2 (08:56→21:05)
[2021-08-03] MEDS: REMEDY ESSENTIAL ZINC PASTE 113 GM TOP SCH ×2 (08:57→21:05)
[2021-08-03] MEDS: CLOTRIMAZOLE 1% CREAM 30 GM TUBE TOP SCH ×2 (08:57→17:45)
[2021-08-03] MEDS ORDERED: HYDROXYUREA 500 MG CAPSULE PO SCH (09:00)
[2021-08-03 10:29] LABS: CARBON DIOXIDE 26 mmol/L (21-32); CHLORIDE 102 mmol/L (98-107); CREATININE 0.4 mg/dL (0.6-1.3); GLUCOSE 122 mg/dL (74-106); POTASSIUM 3.8 mmol/L (3.5-5.1); UREA NITROGEN, BLOOD 11 mg/dL (7-18)
[2021-08-03] MEDS ORDERED: HYDROXYUREA 500 MG CAPSULE GT SCH (12:30)
[2021-08-03] MEDS ORDERED: IV NORMAL SALINE 250 ML IV ONE (19:45)
--- NOTE | 2021-08-03 20:20 | NUR ---
Dr Renee at bedside and updated on pt's present condition, Plt, SBP 90's, Na level, low urine output, with ongoing 250 ml NS bolus per Dr Renee, will continue to monitor condition.
[2021-08-03] MEDS: ATORVASTATIN 10 MG TABLET GT SCH (21:00)
[2021-08-03] MEDS: ENOXAPARIN SODIUM 40 MG/0.4 ML DISP.SYRIN SQ SCH (21:03)
[2021-08-04] VITALS (24 sets, daily range): BP systolic 103–153; BP diastolic 44–84
--- NOTE | 2021-08-04 02:20 | NUR ---
UO 50 ml at this time, pads wet and changed.
[2021-08-04] MEDS: MORPHINE SULFATE 2 MG/1 ML DISP.SYRIN IV PRN ×2 (03:58→16:15)
--- NOTE | 2021-08-04 03:58 | NUR ---
c/o back pain, repositioned to sides. Morphine IV given.
[2021-08-04] MEDS: MEROPENEM 1 G in IV NORMAL SALINE 100 ML IV SCH ×3 (05:07→21:06)
[2021-08-04] MEDS: PANTOPRAZOLE ORAL SUSPENSION 40 MG SUSPDR.PKT GT SCH (05:09)
[2021-08-04 05:31] LABS: HEMATOCRIT 29.3 % (31.2-41.9); MEAN CORPUSCULAR HEMOGLOBIN 32.2 uug (24.7-32.8); MEAN CORPUSCULAR VOLUME 92.3 fL (75.5-95.3)
[2021-08-04 05:45] LABS: PLATELET COUNT (AUTO) 1820 K/uL (179-408)
[2021-08-04 05:51] LABS: ALANINE AMINOTRANSFERASE 14 U/L (14-59); ALKALINE PHOSPHATASE 43 U/L (50-136); ASPARTATE AMINOTRANSFERASE 16 U/L (15-37); BILIRUBIN,TOTAL 0.3 mg/dL (0.2-1.0); CARBON DIOXIDE 27 mmol/L (21-32); CHLORIDE 105 mmol/L (98-107); CREATININE 0.5 mg/dL (0.6-1.3); GLUCOSE 113 mg/dL (74-106); MAGNESIUM 1.8 mg/dL (1.8-2.4); PHOSPHOROUS 3.3 mg/dL (2.5-4.9); POTASSIUM 4.1 mmol/L (3.5-5.1); TOTAL PROTEIN, SERUM 5.6 g/dL (6.4-8.2); UREA NITROGEN, BLOOD 13 mg/dL (7-18)
[2021-08-04 05:54] LABS: IRON, SERUM 18 ug/dL (50-175)
[2021-08-04] MEDS: MULTIVITAMINS,THERAPEUTIC TABLET GT SCH (09:28)
[2021-08-04] MEDS: ACIDOPHILUS/BULGARICUS CHEW TAB GT SCH ×2 (09:28→20:59)
[2021-08-04] MEDS: DIVALPROEX SPRINKLE 125 MG CAP.SPRINK PO SCH ×2 (09:29→20:59)
[2021-08-04] MEDS: levETIRAcetam 500 MG/5 ML LIQUID UDC GT SCH ×2 (09:29→16:12)
[2021-08-04] MEDS: MEMANTINE HCL 5 MG TABLET GT SCH ×2 (09:29→16:13)
[2021-08-04] MEDS: CARBIDOPA/LEVODOPA 25-100MG TABLET GT SCH ×3 (09:30→16:12)
[2021-08-04] MEDS: MUPIROCIN 2% OINT 22 GM TUBE NS SCH ×2 (09:35→20:59)
[2021-08-04] MEDS: CLOTRIMAZOLE 1% CREAM 30 GM TUBE TOP SCH ×2 (09:36→16:08)
[2021-08-04] MEDS: REMEDY ESSENTIAL ZINC PASTE 113 GM TOP SCH ×2 (09:36→20:59)
--- NOTE | 2021-08-04 09:58 | NUR ---
EMT staff in the unit and bedside report given to Miller Cleveland. patient left room AAOx4. vitals of HR 62 sbp of 149/76. RR 18. saturation 98%. IV lines bilateral fore arms patent.
--- NOTE | 2021-08-04 10:01 | NUR ---
Patient left via ambulance EMT staff at her side pt. still verbalizing "I'm feeling nervous".
[2021-08-04] MEDS ORDERED: IOHEXOL 300MG/ML 100 ML INFUS..BTL ONE (10:26)
[2021-08-04] MEDS ORDERED: SWABABLE VALVE TRANSFER SET EA MC ONE (10:26)
[2021-08-04] MEDS ORDERED: IV NORMAL SALINE 250 ML IV ONE (10:27)
--- NOTE | 2021-08-04 19:00 | NUR ---
Received report. Patient is awake, alert. On RA, O2 sat 95%. SR on the monitor, HR 108. GT patent and clamped. IV site BERTHA ML patent and flushed. Gamble catheter draining well to gravity. Turn and repositioned every 2 hours. Will continue to monitor closely. Addendum: 08/05/21 at 0156 by Carrie Deng RN On mittens restraints, CMS checked and intact.
--- NOTE | 2021-08-04 19:30 | NUR ---
Dr Renee at bedside, update given.
[2021-08-04 19:41] LABS: VALPROIC ACID < 3 ug/mL (50-100)
[2021-08-04] MEDS: ATORVASTATIN 10 MG TABLET GT SCH (20:59)
[2021-08-04] MEDS: ENOXAPARIN SODIUM 40 MG/0.4 ML DISP.SYRIN SQ SCH (21:00)
--- NOTE | 2021-08-04 22:16 | NUR ---
A-flutter on the monitor for 1-2 minutes, HR 129. BP 103/44, O2 sat 98%, RR 16. NAD. Patient converted back to SR on the monitor. Dr. Renee made aware with no new orders. Will continue to monitor closely.
[2021-08-05] VITALS (21 sets, daily range): BP systolic 81–157; BP diastolic 31–76
--- NOTE | 2021-08-05 00:40 | NUR ---
Patient stated, "I can't pee." Reoriented and educated pt regarding longo catheter. Irrigated longo catheter with 100cc of water, no resistance noted. Minimal amount of urine output noted. Bladder scanner done which revealed 4cc. Called [facility] exchange and spoke with Dr Butts regarding patient's condition. Per Beckie, to do stat CMP. Noted and carried out.
[2021-08-05 01:05] LABS: CREATININE 0.6 mg/dL (0.6-1.3); POTASSIUM 4.8 mmol/L (3.5-5.1)
[2021-08-05 01:11] LABS: BILIRUBIN,TOTAL 0.3 mg/dL (0.2-1.0); TOTAL PROTEIN, SERUM 5.6 g/dL (6.4-8.2)
--- NOTE | 2021-08-05 04:00 | NUR ---
Patient stated, "I'm thirsty. I want iced water." Offered iced water. Patient able to chew, drink and swallow iced water, tolerating well.
[2021-08-05 05:11] LABS: MEAN CORPUSCULAR HEMOGLOBIN 32.2 uug (24.7-32.8); MEAN CORPUSCULAR VOLUME 93.7 fL (75.5-95.3)
[2021-08-05 05:15] LABS: PLATELET COUNT (AUTO) 2104 K/uL (179-408)
[2021-08-05 05:21] LABS: MAGNESIUM 1.7 mg/dL (1.8-2.4); PHOSPHOROUS 3.2 mg/dL (2.5-4.9)
[2021-08-05] MEDS: MEROPENEM 1 G in IV NORMAL SALINE 100 ML IV SCH ×3 (05:39→21:02)
[2021-08-05] MEDS: PANTOPRAZOLE ORAL SUSPENSION 40 MG SUSPDR.PKT GT SCH (05:39)
--- NOTE | 2021-08-05 07:00 | NUR ---
Received report from production supervisor off shift nurse. Patient resting comfortably in bed with no visible signs of SOB or pain. Patient easily arousable and states no pain at the moment. Bed is in lowest, locked position with siderails up x3. Call light placed within reach with RN performing hourly rounding for patient safety.
--- NOTE | 2021-08-05 08:00 | NUR ---
Spoke with Daljit FINANCE AND ADMINISTRATION MANAGER with regards to the reported low magnesium. States will order repletion.
[2021-08-05] MEDS: MULTIVITAMINS,THERAPEUTIC TABLET GT SCH (08:58)
[2021-08-05] MEDS: DIVALPROEX SPRINKLE 125 MG CAP.SPRINK PO SCH ×2 (08:58→21:00)
[2021-08-05] MEDS: MEMANTINE HCL 5 MG TABLET GT SCH ×2 (08:58→17:00)
[2021-08-05] MEDS: ACIDOPHILUS/BULGARICUS CHEW TAB GT SCH ×2 (08:58→21:00)
[2021-08-05] MEDS: levETIRAcetam 500 MG/5 ML LIQUID UDC GT SCH (09:01)
[2021-08-05] MEDS: HYDROXYUREA 500 MG CAPSULE PO SCH ×2 (09:05→18:33)
[2021-08-05] MEDS: CARBIDOPA/LEVODOPA 25-100MG TABLET GT SCH ×3 (09:06→18:32)
[2021-08-05] MEDS: MUPIROCIN 2% OINT 22 GM TUBE NS SCH ×2 (09:19→21:01)
[2021-08-05] MEDS: CLOTRIMAZOLE 1% CREAM 30 GM TUBE TOP SCH ×2 (09:19→18:43)
[2021-08-05] MEDS: REMEDY ESSENTIAL ZINC PASTE 113 GM TOP SCH ×2 (09:20→21:01)
--- NOTE | 2021-08-05 09:30 | NUR ---
Completed med pass. Patient able to make needs known. Consumed around 25% of her meals without difficulty. Patient complained of lower back pain and was returned to a lower position.
[2021-08-05] MEDS ORDERED: MAGNESIUM OXIDE 400 MG TABLET PO ONE (13:00)
[2021-08-05] MEDS ORDERED: VANCOMYCIN IV 1,250 MG in IV DEXTROSE 5% 250 ML IV ONE (15:00)
[2021-08-05] MEDS: levETIRAcetam 250 MG TABLET PO SCH (18:32)
[2021-08-05] MEDS: MORPHINE SULFATE 2 MG/1 ML DISP.SYRIN IV PRN (19:32)
[2021-08-05] MEDS: LORAZEPAM 0.5 MG TABLET GT PRN (21:00)
[2021-08-05] MEDS ORDERED: FERROUS SULFATE 325 MG TABEC PO SCH (21:00)
[2021-08-05] MEDS: ACETAMINOPHEN 650 MG/20.3 ML LIQUID UDC GT PRN (21:00)
[2021-08-05] MEDS: ATORVASTATIN 10 MG TABLET GT SCH (21:01)
[2021-08-05] MEDS: ENOXAPARIN SODIUM 40 MG/0.4 ML DISP.SYRIN SQ SCH (21:02)
[2021-08-06] VITALS (13 sets, daily range): BP systolic 100–152; BP diastolic 33–75
[2021-08-06] MEDS: VANCOMYCIN IV 1,000 MG in IV DEXTROSE 5% 250 ML IV SCH ×2 (02:17→16:24)
--- NOTE | 2021-08-06 03:00 | NUR ---
AM care done. Linen changed.
[2021-08-06] MEDS: MORPHINE SULFATE 2 MG/1 ML DISP.SYRIN IV PRN ×4 (03:01→23:37)
[2021-08-06] MEDS: LORAZEPAM 0.5 MG TABLET GT PRN (03:01)
[2021-08-06 05:06] LABS: CARBON DIOXIDE 31 mmol/L (21-32); CHLORIDE 102 mmol/L (98-107); CREATININE 0.4 mg/dL (0.6-1.3); GLUCOSE 105 mg/dL (74-106); POTASSIUM 4.4 mmol/L (3.5-5.1); UREA NITROGEN, BLOOD 12 mg/dL (7-18)
[2021-08-06 05:21] LABS: URIC ACID 3.8 mg/dL (2.6-6.0)
[2021-08-06] MEDS: MEROPENEM 1 G in IV NORMAL SALINE 100 ML IV SCH ×3 (06:13→21:34)
[2021-08-06] MEDS: PANTOPRAZOLE ORAL SUSPENSION 40 MG SUSPDR.PKT GT SCH (06:13)
[2021-08-06 06:14] LABS: HEMATOCRIT 29.3 % (31.2-41.9); MEAN CORPUSCULAR HEMOGLOBIN 31.8 uug (24.7-32.8); MEAN CORPUSCULAR VOLUME 93.7 fL (75.5-95.3)
[2021-08-06 06:26] LABS: PLATELET COUNT (AUTO) 1967 K/uL (179-408)
--- NOTE | 2021-08-06 06:30 | NUR ---
Patient complaining of itchiness all over her body. Redness noted on her VERÓNICA and right upper thigh. Notified Doctor Dwain. Per Dr Prakash, to give Benadryl 25mg IV Q6 PRN. Noted and carried out. Will continue to monitor closely.
[2021-08-06] MEDS: diphenhydrAMINE 50 MG/1 ML VIAL IV PRN ×2 (06:51→18:34)
[2021-08-06 08:08] LABS: BAND % (MANUAL) 1 % (0-10); BASOPHILS % (MANUAL) 1 % (0-2); EOSINOPHILS % (MANUAL) 9 % (0-8); LYMPHOCYTES % (MANUAL) 24 % (20-40); MONOCYTES % (MANUAL) 3 % (2-10); NEUTROPHILS % (MANUAL) 62 % (42-75)
[2021-08-06] MEDS: ACIDOPHILUS/BULGARICUS CHEW TAB GT SCH ×2 (08:28→20:31)
[2021-08-06] MEDS: MEMANTINE HCL 5 MG TABLET GT SCH ×2 (08:28→17:46)
[2021-08-06] MEDS: DIVALPROEX SPRINKLE 125 MG CAP.SPRINK PO SCH ×2 (08:28→20:31)
[2021-08-06] MEDS: MULTIVITAMINS,THERAPEUTIC TABLET GT SCH (08:28)
[2021-08-06] MEDS: HYDROXYUREA 500 MG CAPSULE PO SCH ×2 (08:30→17:45)
[2021-08-06] MEDS: REMEDY ESSENTIAL ZINC PASTE 113 GM TOP SCH ×2 (08:33→20:32)
[2021-08-06] MEDS: CLOTRIMAZOLE 1% CREAM 30 GM TUBE TOP SCH ×2 (08:33→17:47)
[2021-08-06] MEDS: CARBIDOPA/LEVODOPA 25-100MG TABLET GT SCH ×3 (08:39→17:43)
[2021-08-06] MEDS: levETIRAcetam 250 MG TABLET PO SCH ×2 (08:39→17:43)
[2021-08-06] MEDS: MUPIROCIN 2% OINT 22 GM TUBE NS SCH ×2 (08:40→20:32)
--- NOTE | 2021-08-06 09:29 | NUR ---
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 They called [facility] and they will be releasing results later on today. The lab was received and processed at [facility]. Pending call back from lab for flow cytometry follow up as well.
--- NOTE | 2021-08-06 10:13 | NUR ---
Daljit DNP in the unit to see patient. downgraded to tele at this time
[2021-08-06] MEDS: FERROUS SULFATE 325 MG TABEC PO SCH ×2 (10:16→20:31)
--- NOTE | 2021-08-06 20:15 | NUR ---
Patient c/o itchiness, VERÓNICA redness, right and left upper thigh redness noted. Notified Jodie Cedillo NP. Per Nguyen, to give another benadryl 25mg IV now. Noted and carried out.
[2021-08-06] MEDS ORDERED: diphenhydrAMINE 50 MG/1 ML VIAL IV ONE (20:30)
[2021-08-06] MEDS: ATORVASTATIN 10 MG TABLET GT SCH (20:31)
[2021-08-06] MEDS: ENOXAPARIN SODIUM 40 MG/0.4 ML DISP.SYRIN SQ SCH (20:31)
--- NOTE | 2021-08-06 21:14 | NUR ---
Vikas MANAGER MONEY at bedside, report given.
--- NOTE | 2021-08-06 21:30 | NUR ---
Urine culture specimen taken and sent to lab.
[2021-08-07] VITALS (7 sets, daily range): BP systolic 91–137; BP diastolic 45–71
--- NOTE | 2021-08-07 01:00 | NUR ---
Patient had an episode of non-sustaining V tach 13 beats, HR 187. BP 108/45, RR 13, O2 sat 95%. No symptoms noted. This blurb writer had a break during the event happened. Charge nurse Yanna huston. Dr Prakash made aware with new orders of stat troponin and cardio consult. Will continue to monitor closely. Addendum: 08/07/21 at 0645 by Carrie Deng RN NAD. Patient converted back to NSR. Will continue to monitor closely.
[2021-08-07] MEDS: LORAZEPAM 0.5 MG TABLET GT PRN ×2 (01:24→21:22)
[2021-08-07] MEDS: ACETAMINOPHEN 650 MG/20.3 ML LIQUID UDC GT PRN ×3 (01:24→23:50)
--- NOTE | 2021-08-07 04:00 | NUR ---
AM care done. Linen changed.
[2021-08-07] MEDS: MEROPENEM 1 G in IV NORMAL SALINE 100 ML IV SCH ×3 (06:01→21:24)
[2021-08-07] MEDS: PANTOPRAZOLE ORAL SUSPENSION 40 MG SUSPDR.PKT GT SCH (06:01)
[2021-08-07 07:36] LABS: HEMATOCRIT 28.9 % (31.2-41.9); MEAN CORPUSCULAR HEMOGLOBIN 32.5 uug (24.7-32.8); MEAN CORPUSCULAR VOLUME 93.9 fL (75.5-95.3)
[2021-08-07 07:39] LABS: CARBON DIOXIDE 28 mmol/L (21-32); CHLORIDE 102 mmol/L (98-107); CREATININE 0.5 mg/dL (0.6-1.3); GLUCOSE 97 mg/dL (74-106); PHOSPHOROUS 4.4 mg/dL (2.5-4.9); POTASSIUM 4.9 mmol/L (3.5-5.1); UREA NITROGEN, BLOOD 14 mg/dL (7-18)
[2021-08-07 07:42] LABS: PLATELET COUNT (AUTO) 2139 K/uL (179-408)
[2021-08-07] MEDS: MORPHINE SULFATE 2 MG/1 ML DISP.SYRIN IV PRN ×2 (08:08→17:26)
[2021-08-07 08:21] LABS: BASOPHILS % (MANUAL) 3 % (0-2); EOSINOPHILS % (MANUAL) 10 % (0-8); LYMPHOCYTES % (MANUAL) 24 % (20-40); MONOCYTES % (MANUAL) 2 % (2-10); NEUTROPHILS % (MANUAL) 60 % (42-75)
[2021-08-07] MEDS: MULTIVITAMINS,THERAPEUTIC TABLET GT SCH (09:14)
[2021-08-07] MEDS: MEMANTINE HCL 5 MG TABLET GT SCH ×2 (09:14→18:04)
[2021-08-07] MEDS: DIVALPROEX SPRINKLE 125 MG CAP.SPRINK PO SCH ×2 (09:14→21:22)
[2021-08-07] MEDS: REMEDY ESSENTIAL ZINC PASTE 113 GM TOP SCH ×2 (09:14→21:24)
[2021-08-07] MEDS: FERROUS SULFATE 325 MG TABEC PO SCH ×2 (09:14→21:22)
[2021-08-07] MEDS: CLOTRIMAZOLE 1% CREAM 30 GM TUBE TOP SCH ×2 (09:14→18:26)
[2021-08-07] MEDS: ACIDOPHILUS/BULGARICUS CHEW TAB GT SCH ×2 (09:14→21:22)
[2021-08-07] MEDS: MUPIROCIN 2% OINT 22 GM TUBE NS SCH ×2 (09:15→21:22)
[2021-08-07] MEDS: CARBIDOPA/LEVODOPA 25-100MG TABLET GT SCH ×3 (09:20→18:02)
[2021-08-07] MEDS: levETIRAcetam 250 MG TABLET PO SCH ×2 (09:20→18:03)
[2021-08-07] MEDS: HYDROXYUREA 500 MG CAPSULE PO SCH ×2 (09:29→21:20)
[2021-08-07] MEDS ORDERED: HYDROXYUREA 500 MG CAPSULE PO ONE (12:00)
[2021-08-07] MEDS ORDERED: LIDOCAINE 0.5% MPF 50 ML VIAL INJ ONE (12:15)
[2021-08-07] MEDS: ATORVASTATIN 10 MG TABLET GT SCH (21:19)
[2021-08-07] MEDS: ENOXAPARIN SODIUM 40 MG/0.4 ML DISP.SYRIN SQ SCH (21:21)
[2021-08-07] MEDS: REMEDY ESSENTIAL ZINC PASTE 113 GM TOP PRN (21:23)
[2021-08-08] VITALS (8 sets, daily range): BP systolic 103–183; BP diastolic 50–95
[2021-08-08 06:00] LABS: HEMATOCRIT 27.9 % (31.2-41.9); MEAN CORPUSCULAR HEMOGLOBIN 32.2 uug (24.7-32.8); MEAN CORPUSCULAR VOLUME 93.1 fL (75.5-95.3)
[2021-08-08] MEDS: MEROPENEM 1 G in IV NORMAL SALINE 100 ML IV SCH (06:22)
[2021-08-08] MEDS: PANTOPRAZOLE ORAL SUSPENSION 40 MG SUSPDR.PKT GT SCH (06:22)
[2021-08-08 06:23] LABS: CARBON DIOXIDE 31 mmol/L (21-32); CHLORIDE 104 mmol/L (98-107); CREATININE 0.4 mg/dL (0.6-1.3); GLUCOSE 87 mg/dL (74-106); POTASSIUM 4.1 mmol/L (3.5-5.1); UREA NITROGEN, BLOOD 17 mg/dL (7-18)
[2021-08-08 06:44] LABS: PLATELET COUNT (AUTO) 1928 K/uL (179-408)
--- NOTE | 2021-08-08 06:47 | NUR ---
Patient received from day shift nurse and she was resting in bed quietly. shift mgr was unremarkable and patient was cared for based on the doctors order and the care plan. Pt ate puree dinner. Vital signs remained stable throughout the shift. The plan is for Dr. Chacon to do a bone marrow biopsy on the morning shift. Report endorsed to Day shift RN.
--- NOTE | 2021-08-08 07:04 | NUR ---
END OF SHIFT SUMMARY 08-08-2021 6am Patient was received in bed resting comfortably. The shift was pretty unremarkable except when the patient went off BiPAP. At that time the patient became markedly hypertensive and tachycardic and was short of breath. Pt's vital sighs quickly became back to baseline when he was placed back on bipap. AM care done. Report endorsed to [facility] daysctft nurse.
[2021-08-08 07:13] LABS: BAND % (MANUAL) 1 % (0-10); BASOPHILS % (MANUAL) 3 % (0-2); EOSINOPHILS % (MANUAL) 4 % (0-8); LYMPHOCYTES % (MANUAL) 19 % (20-40); MONOCYTES % (MANUAL) 1 % (2-10); NEUTROPHILS % (MANUAL) 72 % (42-75)
[2021-08-08] MEDS: MUPIROCIN 2% OINT 22 GM TUBE NS SCH (08:24)
[2021-08-08] MEDS: MEMANTINE HCL 5 MG TABLET GT SCH ×2 (08:24→16:46)
[2021-08-08] MEDS: MULTIVITAMINS,THERAPEUTIC TABLET GT SCH (08:24)
[2021-08-08] MEDS: FERROUS SULFATE 325 MG TABEC PO SCH ×2 (08:24→22:00)
[2021-08-08] MEDS: DIVALPROEX SPRINKLE 125 MG CAP.SPRINK PO SCH ×2 (08:24→22:00)
[2021-08-08] MEDS: ACIDOPHILUS/BULGARICUS CHEW TAB GT SCH ×2 (08:24→22:06)
[2021-08-08] MEDS: HYDROXYUREA 500 MG CAPSULE PO SCH ×2 (08:36→21:58)
[2021-08-08] MEDS: CARBIDOPA/LEVODOPA 25-100MG TABLET GT SCH ×3 (08:36→16:46)
[2021-08-08] MEDS: levETIRAcetam 250 MG TABLET PO SCH ×2 (08:36→16:46)
[2021-08-08] MEDS: REMEDY ESSENTIAL ZINC PASTE 113 GM TOP SCH ×2 (08:37→21:58)
[2021-08-08] MEDS: CLOTRIMAZOLE 1% CREAM 30 GM TUBE TOP SCH ×2 (08:37→16:47)
[2021-08-08] MEDS ORDERED: LIDOCAINE HCL 1% 20 ML VIAL IJ PRN (09:15)
[2021-08-08] MEDS: BISACODYL 10 MG SUPP.RECT RC PRN (13:59)
[2021-08-08] MEDS: LORAZEPAM 0.5 MG TABLET GT PRN ×2 (15:24→22:07)
[2021-08-08] MEDS: ATORVASTATIN 10 MG TABLET GT SCH (21:59)
[2021-08-08] MEDS: ENOXAPARIN SODIUM 40 MG/0.4 ML DISP.SYRIN SQ SCH (22:05)
[2021-08-08] MEDS: ACETAMINOPHEN 650 MG/20.3 ML LIQUID UDC GT PRN (22:05)
[2021-08-08] MEDS: diphenhydrAMINE 50 MG/1 ML VIAL IV PRN (23:53)
[2021-08-09 04:00] VITALS: BP 145/63
[2021-08-09] MEDS: ACETAMINOPHEN 650 MG/20.3 ML LIQUID UDC GT PRN ×2 (04:11→21:50)
[2021-08-09] MEDS: MUPIROCIN 2% OINT 22 GM TUBE NS SCH (04:16)
--- NOTE | 2021-08-09 07:31 | NUR ---
Pt resting in bed Endorse report to EWA Echevarria PT is asleep in bed. Benadryl continues as needed. Dose administerd this shift without s/s of adverse reaction.
[2021-08-09 08:00] VITALS: BP 136/63
[2021-08-09 09:14] LABS: CARBON DIOXIDE 31 mmol/L (21-32); CHLORIDE 103 mmol/L (98-107); CREATININE 0.4 mg/dL (0.6-1.3); GLUCOSE 91 mg/dL (74-106); PHOSPHOROUS 3.4 mg/dL (2.5-4.9); POTASSIUM 4.1 mmol/L (3.5-5.1); UREA NITROGEN, BLOOD 18 mg/dL (7-18)
[2021-08-09] MEDS: CARBIDOPA/LEVODOPA 25-100MG TABLET GT SCH ×3 (09:36→17:21)
[2021-08-09] MEDS: levETIRAcetam 250 MG TABLET PO SCH ×2 (09:37→17:27)
[2021-08-09] MEDS: ACIDOPHILUS/BULGARICUS CHEW TAB GT SCH (09:39)
[2021-08-09] MEDS: MEMANTINE HCL 5 MG TABLET GT SCH ×2 (09:39→17:20)
[2021-08-09] MEDS: FERROUS SULFATE 325 MG TABEC PO SCH ×2 (09:39→22:41)
[2021-08-09] MEDS: MULTIVITAMINS,THERAPEUTIC TABLET GT SCH (09:39)
[2021-08-09] MEDS: DIVALPROEX SPRINKLE 125 MG CAP.SPRINK PO SCH ×2 (09:39→22:41)
[2021-08-09] MEDS: HYDROXYUREA 500 MG CAPSULE PO SCH ×2 (09:40→22:33)
[2021-08-09] MEDS: REMEDY ESSENTIAL ZINC PASTE 113 GM TOP PRN ×2 (09:42→09:43)
[2021-08-09] MEDS: CLOTRIMAZOLE 1% CREAM 30 GM TUBE TOP SCH ×2 (09:42→17:27)
[2021-08-09] MEDS: REMEDY ESSENTIAL ZINC PASTE 113 GM TOP SCH ×2 (09:43→21:00)
[2021-08-09 11:02] LABS: HEMATOCRIT 31.5 % (31.2-41.9); MEAN CORPUSCULAR HEMOGLOBIN 32.2 uug (24.7-32.8); MEAN CORPUSCULAR VOLUME 94.2 fL (75.5-95.3)
[2021-08-09 11:04] LABS: PLATELET COUNT (AUTO) 1872 K/uL (179-408)
[2021-08-09 12:00] VITALS: BP 97/59
[2021-08-09 16:00] VITALS: BP 103/58
[2021-08-09] MEDS: MORPHINE SULFATE 2 MG/1 ML DISP.SYRIN IV PRN (17:23)
[2021-08-09 18:50] LABS: LYMPHOCYTES % (MANUAL) 11 % (20-40); MONOCYTES % (MANUAL) 1 % (2-10); NEUTROPHILS % (MANUAL) 85 % (42-75)
[2021-08-09 18:51] LABS: BASOPHILS % (MANUAL) 1 % (0-2); EOSINOPHILS % (MANUAL) 2 % (0-8)
[2021-08-09 19:07] LABS: HEMATOCRIT 29.8 % (31.2-41.9); MEAN CORPUSCULAR HEMOGLOBIN 31.9 uug (24.7-32.8)
[2021-08-09 19:20] LABS: PLATELET COUNT (AUTO) 1947 K/uL (179-408)
[2021-08-09 20:00] VITALS: BP 136/76
--- NOTE | 2021-08-09 20:25 | NUR ---
patient is resting in bed. Resp is even and unlabored. HOB 30. Patient states that she is t=feeling comfortable. Denies pain. Patient's daughter is at the bedside.
[2021-08-09] MEDS: ENOXAPARIN SODIUM 40 MG/0.4 ML DISP.SYRIN SQ SCH (21:00)
--- NOTE | 2021-08-09 22:00 | NUR ---
pt catheterized as oe=rdered. drained 1200 cc of clear yellowm bladder scan done as ordered prior to catherization shows retr=ention of 1000ml. Pt refused skin care.
[2021-08-09] MEDS: ATORVASTATIN 10 MG TABLET GT SCH (22:34)
[2021-08-09] MEDS: diphenhydrAMINE 50 MG/1 ML VIAL IV PRN (22:41)
[2021-08-10] VITALS: BP 135/67
[2021-08-10] MEDS: ACIDOPHILUS/BULGARICUS CHEW TAB GT SCH ×3 (01:48→20:08)
[2021-08-10 04:00] VITALS: BP 148/67
[2021-08-10] MEDS: ACETAMINOPHEN 650 MG/20.3 ML LIQUID UDC GT PRN ×2 (04:40→21:38)
[2021-08-10] MEDS: PANTOPRAZOLE ORAL SUSPENSION 40 MG SUSPDR.PKT GT SCH ×2 (06:00→06:48)
[2021-08-10 06:49] LABS: CARBON DIOXIDE 29 mmol/L (21-32); CHLORIDE 104 mmol/L (98-107); CREATININE 0.4 mg/dL (0.6-1.3); GLUCOSE 101 mg/dL (74-106); POTASSIUM 4.1 mmol/L (3.5-5.1); UREA NITROGEN, BLOOD 20 mg/dL (7-18)
--- NOTE | 2021-08-10 08:00 | NUR ---
RESTING COMFORTABLY IN BED NO SIGNS OF ACUTE PAIN SR ON [id number]
[2021-08-10] MEDS: FERROUS SULFATE 325 MG TABEC PO SCH ×2 (08:31→20:08)
[2021-08-10] MEDS: levETIRAcetam 250 MG TABLET PO SCH ×2 (08:31→16:59)
[2021-08-10] MEDS: DIVALPROEX SPRINKLE 125 MG CAP.SPRINK PO SCH ×2 (08:31→20:08)
[2021-08-10] MEDS: MULTIVITAMINS,THERAPEUTIC TABLET GT SCH (08:31)
[2021-08-10] MEDS: CARBIDOPA/LEVODOPA 25-100MG TABLET GT SCH ×3 (08:44→16:59)
[2021-08-10] MEDS: MEMANTINE HCL 5 MG TABLET GT SCH ×2 (08:44→16:59)
[2021-08-10] MEDS: CLOTRIMAZOLE 1% CREAM 30 GM TUBE TOP SCH ×2 (08:45→16:59)
[2021-08-10] MEDS: REMEDY ESSENTIAL ZINC PASTE 113 GM TOP SCH ×2 (09:03→20:10)
[2021-08-10 09:07] LABS: HEMATOCRIT 31.4 % (31.2-41.9); MEAN CORPUSCULAR HEMOGLOBIN 32.2 uug (24.7-32.8); MEAN CORPUSCULAR VOLUME 94.9 fL (75.5-95.3)
[2021-08-10] MEDS: HYDROXYUREA 500 MG CAPSULE PO SCH ×2 (10:33→20:09)
[2021-08-10 11:10] LABS: PLATELET COUNT (AUTO) 2117 K/uL (179-408)
[2021-08-10] MEDS: MORPHINE SULFATE 2 MG/1 ML DISP.SYRIN IV PRN ×3 (11:55→23:37)
[2021-08-10 12:00] VITALS: BP 127/79
--- NOTE | 2021-08-10 12:00 | NUR ---
NO ACUTE CHANGE FROM MORNING ASSESSMENT
[2021-08-10] MEDS ORDERED: FERR325T28 PO (12:08)
[2021-08-10] MEDS ORDERED: HYDR500C PO (12:08)
[2021-08-10] MEDS ORDERED: DIVA125C2 PO (12:08)
[2021-08-10] MEDS ORDERED: CLOT30CR24 TOP (12:08)
--- NOTE | 2021-08-10 14:56 | NUR ---
ALERT AND ANSWERS SIMPLE QUESTIONS APPROPRIATELY, NO SS OF DISTRESS. SR ON MONITOR
[2021-08-10 16:00] VITALS: BP 121/76
[2021-08-10 16:07] LABS: NEUTROPHILS % (MANUAL) 91 % (42-75)
[2021-08-10 16:08] LABS: LYMPHOCYTES % (MANUAL) 7 % (20-40)
[2021-08-10 16:45] LABS: BAND % (MANUAL) 0 % (0-10); BASOPHILS % (MANUAL) 0 % (0-2)
[2021-08-10] MEDS: REMEDY ESSENTIAL ZINC PASTE 113 GM TOP PRN (17:00)
[2021-08-10 17:54] LABS: EOSINOPHILS % (MANUAL) 2 % (0-8); LYMPHOCYTES % (MANUAL) 11 % (20-40); MONOCYTES % (MANUAL) 1 % (2-10); NEUTROPHILS % (MANUAL) 86 % (42-75)
--- NOTE | 2021-08-10 19:25 | NUR ---
RECEIVED PATIENT IN BED. AAOX4. ABLE TO MAKE NEEDS KNOWN. ON TELEMONITOR, SHOWING SINUS RHYTHM. ON 3L O2, SATURATING AT 97%. PT APPEARS TO BE IN PAIN D/T PRIOR BIOPSY PROCEDURE. IV ACCESS PATENT AND INTACT. SAFETY PRECAUTIONS INITIATED. PT MONITORED CLOSELY.
[2021-08-10] MEDS: ATORVASTATIN 10 MG TABLET GT SCH (20:08)
[2021-08-10] MEDS: ENOXAPARIN SODIUM 40 MG/0.4 ML DISP.SYRIN SQ SCH (20:10)
[2021-08-10 20:35] VITALS: BP 107/64
[2021-08-10] MEDS: LORAZEPAM 0.5 MG TABLET GT PRN (22:45)
[2021-08-11 00:31] VITALS: BP 104/56
[2021-08-11 04:00] VITALS: BP 100/53
[2021-08-11] MEDS: PANTOPRAZOLE ORAL SUSPENSION 40 MG SUSPDR.PKT GT SCH (05:08)
--- NOTE | 2021-08-11 05:26 | NUR ---
PATIENT SLEPT THROUGH THE NIGHT, COMPLAINED OF HAVING PAIN AND BEING ANXIOUS. PRN MORPHINE 2MG/1ML GIVEN AND TOLERATED WELL. ATIVAN 0.5MG/1 TABLET, GIVEN AND TOLERATED WELL. IV ACCESS PATENT AND INTACT. ON 3L O2 SATURATING AT 98%. ON TELEMONITOR SHOWING SINUS RHYTHM. GTUBE PATENT AND INTACT, GTUBE SITE CLEANSED AND DRESSING CHANGED. SAFETY AND SEIZURE PRECAUTIONS MAINTAINED. AWAIT BONE MARROW BIOPSY RESULTS. DISCHARGE INSTRUCTIONS FROM [facility]. NEED CLARIFICATION FOR PLACEMENT FROM CHEF MANAGER. WILL ENDORSE TO DAY SHIFT.
[2021-08-11] MEDS: DIVALPROEX SPRINKLE 125 MG CAP.SPRINK PO SCH (08:45)
[2021-08-11] MEDS: ACIDOPHILUS/BULGARICUS CHEW TAB GT SCH (08:45)
[2021-08-11] MEDS: MULTIVITAMINS,THERAPEUTIC TABLET GT SCH (08:45)
[2021-08-11] MEDS: CARBIDOPA/LEVODOPA 25-100MG TABLET GT SCH ×2 (08:45→12:54)
[2021-08-11] MEDS: FERROUS SULFATE 325 MG TABEC PO SCH (08:46)
[2021-08-11] MEDS: MEMANTINE HCL 5 MG TABLET GT SCH (08:46)
[2021-08-11] MEDS: HYDROXYUREA 500 MG CAPSULE PO SCH (08:48)
[2021-08-11] MEDS: REMEDY ESSENTIAL ZINC PASTE 113 GM TOP SCH (08:49)
[2021-08-11] MEDS: CLOTRIMAZOLE 1% CREAM 30 GM TUBE TOP SCH (08:49)
[2021-08-11] MEDS: levETIRAcetam 250 MG TABLET PO SCH (08:49)
[2021-08-11] MEDS: MORPHINE SULFATE 2 MG/1 ML DISP.SYRIN IV PRN ×2 (08:53→15:38)
--- NOTE | 2021-08-11 10:35 | NUR ---
alert and oriented x3. denies pain or sob. ate more than 50% of breakfast. aspiration precautions observed at all times. no coughing noted. gt intact and patent. requested for morphine for 7/10 shoulders pain and administered with relief. pt for possible dc today states she wants to go back to [facility]. nsr on telemonitor hr 80s-90s. no distress. needs attended. safety measures in place. call light in reach.
[2021-08-11 12:00] VITALS: BP 95/49
[2021-08-11] MEDS: diphenhydrAMINE 50 MG/1 ML VIAL IV PRN (14:03)
[2021-08-11 16:00] VITALS: BP 94/41
--- NOTE | 2021-08-11 16:41 | NUR ---
picked up by [facility]. alert and oriented, able to make needs known. requested for morphine prior to transport and given with relief. left via gurney accompanied by her daughter adriane. discharge instructions given to dtr and she verbalized understanding. [facility] pt left with all belongings intact.
[2021-08-11] MEDS ORDERED: ASCORBIC ACID 500 MG TABLET PO SCH (21:00)
== END 2021-08-11 16:30 | DRG 871 ==
LOC: ER 18:07 → CCU 23:28 → TELE3 08-10 04:44
PROVIDERS: ADMIT Registered Nurse; ATTEND Nurse Practitioner Acute Care
PROC: 05H533Z Insertion of Infusion Device into Right Subclavian Vein, Percutaneous Approach (ICD-10-PCS; 2021-07-31)
PROC: B546ZZA Ultrasonography of Right Subclavian Vein, Guidance (ICD-10-PCS; 2021-07-31)
PROC: 07DR3ZX Extraction of Iliac Bone Marrow, Percutaneous Approach, Diagnostic (ICD-10-PCS; principal; 2021-08-09)
DX: A41.9 Sepsis, unspecified organism (principal); G92.8 Other toxic encephalopathy; R53.2 Functional quadriplegia; N39.0 Urinary tract infection, site not specified; Z16.12 Extended spectrum beta lactamase (ESBL) resistance; D68.59 Other primary thrombophilia; I48.92 Unspecified atrial flutter; E22.2 Syndrome of inappropriate secretion of antidiuretic hormone; M48.56XA Collapsed vertebra, not elsewhere classified, lumbar region, initial encounter for fracture; Z16.24 Resistance to multiple antibiotics; E44.0 Moderate protein-calorie malnutrition; C92.90 Myeloid leukemia, unspecified, not having achieved remission; B96.1 Klebsiella pneumoniae [K. pneumoniae] as the cause of diseases classified elsewhere; D50.9 Iron deficiency anemia, unspecified; D75.839 Thrombocytosis, unspecified; E88.09 Other disorders of plasma-protein metabolism, not elsewhere classified; E78.5 Hyperlipidemia, unspecified; E83.39 Other disorders of phosphorus metabolism; E83.42 Hypomagnesemia; E87.6 Hypokalemia; H40.9 Unspecified glaucoma; I10 Essential (primary) hypertension; K21.9 Gastro-esophageal reflux disease without esophagitis; Z87.440 Personal history of urinary (tract) infections; Z88.0 Allergy status to penicillin; Z93.1 Gastrostomy status; G20 Parkinson's disease; F02.80 Dementia in other diseases classified elsewhere, unspecified severity, without behavioral disturbance, psychotic disturbance, mood disturbance, and anxiety; R51.9 Headache, unspecified; R13.10 Dysphagia, unspecified; Z74.09 Other reduced mobility; M19.90 Unspecified osteoarthritis, unspecified site; F39 Unspecified mood [affective] disorder; Z22.322 Carrier or suspected carrier of Methicillin resistant Staphylococcus aureus; Z87.01 Personal history of pneumonia (recurrent); Z20.822 Contact with and (suspected) exposure to COVID-19; G40.909 Epilepsy, unspecified, not intractable, without status epilepticus; Z68.25 Body mass index [BMI] 25.0-25.9, adult
CPT/HCPCS: 36415; 36600; 70030-TC; 70450; 71045; 71046; 71250; 80164; 80299; 82378; 82533; 83550; 83605; 83735; 83935; 84100; 84156; 84295; 84300; 84443; 84484; 84550; 85025; 85610; 85730; 87040; 87070; 87077; 87086; 93005; A4663; A6209; G0378; J0696; J1200; J1650; J1956; J2060; J2185; J2270; J3370; J3475; J3490; J7040; J7050; Q9967